=== PATIENT | male | born 1960 | race African-American/Black ===

== ENCOUNTER 2019-05-28 23:03 | Inpatient (IN) | payer MEDICAID ==
[~2019-05-28] VITALS: Ht 167.6 cm; Wt 99.8 kg
[2019-05-28 23:40] VITALS: BP 126/86
--- NOTE | 2019-05-28 23:50 | NUR ---
ED Nurse Note: PT walked in c/o right upper quad abd pain x 1 wk, reports nausea and diarrhea but denies vomiting. noted pt distended abd, nontender, active BS noted. pt ambulatory w/steady gait. pt AA&ox4, gcs=15, skin warm and dry resp even and unlabored on RA, LS= clear, vss, will cont monitor.
[2019-05-29] MEDS ORDERED: Morphine Sulfate 4mg/ml Inj (IV USE ONLY) IVP ONE
[2019-05-29 00:33] LABS: BASOPHILS % (AUTO) 1.5 % (0.0-2.0); EOSINOPHILS % (AUTO) 0.7 % (0.0-3.0); HEMOGLOBIN 12.6 G/DL (14.2-18.0); MEAN CORPUSCULAR VOLUME 92 FL (80-99); NEUTROPHILS % (AUTO) 36.7 % (45.0-75.0); PLATELET COUNT 250 K/UL (150-450); RED BLOOD COUNT 4.23 M/UL (4.70-6.10); RED CELL DISTRIBUTION WIDTH 13.1 % (11.6-14.8); WHITE BLOOD COUNT 5.3 K/UL (4.8-10.8)
[2019-05-29 00:40] VITALS: BP 138/105
[2019-05-29 00:41] LABS: APPEARANCE,URINE CLEAR; BILIRUBIN, URINE NEGATIVE (NEGATIVE); GLUCOSE, URINE (UA) NEGATIVE (NEGATIVE); KETONES,URINE 1+ (NEGATIVE); LEUKOCYTE ESTERASE ,URINE 2+ (NEGATIVE); NITRITE,URINE NEGATIVE (NEGATIVE); PH,URINE 5 (4.5-8.0); PROTEIN,URINE 2+ (NEGATIVE); UROBILINOGEN,URINE 1 MG/DL (0.0-1.0)
[2019-05-29 00:43] LABS: COLOR,URINE YELLOW
[2019-05-29 00:45] LABS: ANION GAP 7 mmol/L (5-15); BLOOD UREA NITROGEN 18 mg/dL (7-18); CALCIUM 9.9 MG/DL (8.5-10.1); CARBON DIOXIDE 27 MMOL/L (21-32); CHLORIDE 104 MMOL/L (98-107); CREATININE 1.5 MG/DL (0.55-1.30); SODIUM 138 MMOL/L (136-145)
[2019-05-29 00:57] LABS: ALANINE AMINOTRANSFERASE 46 U/L (12-78); ALBUMIN 3.3 G/DL (3.4-5.0); ALBUMIN/GLOBULIN RATIO 1.1 (1.0-2.7); ALKALINE PHOSPHATASE 63 U/L (46-116); ASPARTATE AMINO TRANSFERASE 33 U/L (15-37); BILIRUBIN,TOTAL 0.3 MG/DL (0.2-1.0); CREATINE KINASE 143 U/L (26-308)
--- NOTE | 2019-05-29 01:00 | NUR ---
ED Nurse Note: pt resting at this time pt reports pain is better with medication, vss, NSR on ekg monitor, will cont monitor. pt has urinal at the bedside. safety precautions in place, pt advised to notify staff if needed assist.
--- NOTE | 2019-05-29 01:00 | Emergency Room Report ---
History of Present Illness General Chief Complaint: Abdominal Pain Source: Patient Present Illness HPI Patient was discharged from [facility] on . He is complaining of right upper quadrant abdominal pain. The pain is persisting. They told him he had irritable bowel syndrome. They start him on antibiotics. The patient has a history of congestive heart failure. He is never had as much edema as he does in his legs at this time. He had abdominal distention that he states is somewhat better at this time. The did not give him any pain medication for home. The pain is significant in his abdomen his right upper quadrant. It is not radiating. Patient denies any chest pain. He also denies any dyspnea at this time. He does have some orthopnea. He could not sleep last night because of the pain in his abdomen. When he woke up this morning he was 9/10 pressure and aching. No fevers, chills, sore throat, palpitations, nausea, vomiting, diarrhea, dysuria, shortness of breath, joint pain, rashes, depression, anxiety, visual changes, headache. Allergies: Coded Allergies: LATEX (Verified Allergy, Unknown, 05/28/19) Patient History Past Medical History: see triage record Social History: Reports: drug use - denied but see tox screen; Denies: smoking Social History Narrative from home - came by [employer] Reviewed Nursing Documentation: PMH: Agreed; PSxH: Agreed Nursing Documentation-PMH Hx Hypertension: Yes Hx Asthma: Yes Hx Diabetes: Yes Review of Systems All Other Systems: negative except mentioned in HPI Physical Exam Vital Signs Date Time Temp Pulse Resp B/P (MAP) Pulse Ox O2 Delivery O2 Flow Rate FiO2 05/28/19 23:23 98.1 86 18 156/112 (127) 94 Room Air Sp02 EP Interpretation: reviewed, normal - slightly low as interpreted by me Head: normocephalic, atraumatic Eyes: bilateral eye normal inspection, bilateral eye PERRL Cardiovascular #1: regular rate, rhythm, edema - bilat 1-2+ brawny Gastrointestinal: normal bowel sounds, no rebound, guarding - RUQ, tenderness, overweight Genitourinary: no CVA tenderness Neurologic: oriented x3, grossly normal Psychiatric: mood/affect normal Skin: other - venous disease Medical Decision Making Diagnostic Impression: Primary Impression: Abdominal pain Qualified Codes: R10.11 - Right upper quadrant pain Additional Impressions: Cor pulmonale Substance abuse Acute exacerbation of congestive heart failure Qualified Codes: I50.813 - Acute on chronic right heart failure Edema Qualified Codes: R60.9 - Edema, unspecified ER Course Patient presents with edema and right upper quadrant pain history of congestive heart failure. Differential includes cor pulmonale with hepatic congestion, ascites, hepatitis, cholecystitis, acute myocardial infarction, DVT amongst others. Patient will be evaluated EKG, chest x-ray and labs. The patient will be treated with Lasix, Zofran and morphine. Percent will be obtained of his abdomen. EKG no injury. CXR reversal of flow. WBC normal. BNP normal. Tox + PCP and cocaine. Higher risk for cardiac event with + cocaine. Diuresing. Ultrasound - no ascites, + enlarged liver. No DVT. Patient improved. Patient adamantly denies drug use. States only meds were Dilaudid at [facility]. Admitted observation telemetry. Laboratory Tests Test 05/29/19 00:05 05/29/19 00:07 White Blood Count 5.3 K/UL (4.8-10.8) Red Blood Count 4.23 M/UL (4.70-6.10) L Hemoglobin 12.6 G/DL (14.2-18.0) L Hematocrit 39.0 % (42.0-52.0) L Mean Corpuscular Volume 92 FL (80-99) Mean Corpuscular Hemoglobin 29.9 PG (27.0-31.0) Mean Corpuscular Hemoglobin Concent 32.4 G/DL (32.0-36.0) Red Cell Distribution Width 13.1 % (11.6-14.8) Platelet Count 250 K/UL (150-450) Mean Platelet Volume 5.9 FL (6.5-10.1) L Neutrophils (%) (Auto) 36.7 % (45.0-75.0) L Lymphocytes (%) (Auto) 46.0 % (20.0-45.0) H Monocytes (%) (Auto) 15.0 % (1.0-10.0) H Eosinophils (%) (Auto) 0.7 % (0.0-3.0) Basophils (%) (Auto) 1.5 % (0.0-2.0) Prothrombin Time 10.5 SEC (9.30-11.50) Prothrombin Time INR 1.0 (0.9-1.1) PTT 27 SEC (23-33) Sodium Level 138 MMOL/L (136-145) Potassium Level 4.0 MMOL/L (3.5-5.1) Chloride Level 104 MMOL/L (98-107) Carbon Dioxide Level 27 MMOL/L (21-32) Anion Gap 7 mmol/L (5-15) Blood Urea Nitrogen 18 mg/dL (7-18) Creatinine 1.5 MG/DL (0.55-1.30) H Estimate Glomerular Filtration Rate 58.3 mL/min (>60) Glucose Level 89 MG/DL (74-106) Calcium Level 9.9 MG/DL (8.5-10.1) Total Bilirubin 0.3 MG/DL (0.2-1.0) Aspartate Amino Transferase (AST) 33 U/L (15-37) Alanine Aminotransferase (ALT) 46 U/L (12-78) Alkaline Phosphatase 63 U/L (46-116) Total Creatine Kinase 143 U/L (26-308) Troponin I 0.000 ng/mL (0.000-0.056) Pro-B-Type Natriuretic Peptide 47 pg/mL (0-125) Total Protein 6.4 G/DL (6.4-8.2) Albumin 3.3 G/DL (3.4-5.0) L Globulin 3.1 g/dL Albumin/Globulin Ratio 1.1 (1.0-2.7) Lipase 128 U/L (73-393) Thyroid Stimulating Hormone (TSH) 3.738 uiU/mL (0.358-3.740) Urine Color Yellow Urine Appearance Clear Urine pH 5 (4.5-8.0) Urine Specific [place] 1.020 (1.005-1.035) Urine Protein 2+ (NEGATIVE) H Urine Glucose (UA) Negative (NEGATIVE) Urine Ketones 1+ (NEGATIVE) H Urine Blood Negative (NEGATIVE) Urine Nitrite Negative (NEGATIVE) Urine Bilirubin Negative (NEGATIVE) Urine Urobilinogen 1 MG/DL (0.0-1.0) H Urine Leukocyte Esterase 2+ (NEGATIVE) H Urine RBC 0-2 /HPF (0 - 0) H Urine WBC 2-4 /HPF (0 - 0) Urine Squamous Epithelial Cells Occasional /LPF Urine Bacteria Few /HPF (NONE) Urine Opiates Screen Negative (NEGATIVE) Urine Barbiturates Screen Negative (NEGATIVE) Phencyclidine (PCP) Screen Positive (NEGATIVE) H Urine Amphetamines Screen Negative (NEGATIVE) Urine Benzodiazepines Screen Negative (NEGATIVE) Urine Cocaine Screen Positive (NEGATIVE) H Urine Marijuana (THC) Screen Negative (NEGATIVE) EKG Diagnostic Results Rate: normal Rhythm: NSR ST Segments: no acute changes Rhythm Strip Diag. Results EP Interpretation: yes Rhythm: NSR, no PVC's, no ectopy Chest X-Ray Diagnostic Results Chest X-Ray Diagnostic Results : Chest X-Ray Ordered: Yes # of Views/Limited/Complete: 1 View Indication: Chest Pain EP Interpretation: Yes Interpretation: no effusion, no pneumothorax, other - Reversal of flow Impression: Other Electronically Signed by: Electronically signed by Miguel Mojica MD Other X-Ray Diagnostic Results Other X-Ray Diagnostic Results : X-Ray ordered: Abdomen # of Views/Limited Vs Complete: 2 View Indication: Other EP Interpretation: Yes Interpretation: nonspecific bowel gas, no sbo, other - Positive gas no free air Impression: Other Electronically Signed by: Electronically signed by Miguel Mojica MD CT/MRI/US Diagnostic Results CT/MRI/US Diagnostic Results #1: Imaging Test Ordered: abd u/s Impression fatty liver, no ascites CT/MRI/US Diagnostic Results #2: Imaging Test Ordered: venous doppler Impression no dvt Last Vital Signs Date Time Temp Pulse Resp B/P (MAP) Pulse Ox O2 Delivery O2 Flow Rate FiO2 05/29/19 08:00 97.5 79 20 127/80 (96) 96 05/29/19 03:46 Room Air Status: improved Disposition: PLACE IN OBSERVATION Condition: Serious Referrals: NON PHYSICIAN (PCP) Miguel Mojica MD May 29, 2019 01:00
--- NOTE | 2019-05-29 01:25 | NUR ---
ED Nurse Note: noted o2sat 92% on RA, pt started on o2 via nc 2L/min, pt denies any sob at this time, resp even and unlabored on RA, will cont monitor.
--- NOTE | 2019-05-29 02:20 | NUR ---
ED Nurse Note: REPORT GIVEN TO RN WILLA FROM SDU. ULTRASOUND AT THE BEDSIDE.
--- NOTE | 2019-05-29 02:27 | NUR ---
ED Nurse Note: PT TRANSFERRED TO SDU W ALL BELONGINGS SENT W/ PT, CARE ENDORSED TO NIMO CROUCH, SWABS DONE PER PROTOCOL, IV INTACT AND PATENT. MEDICATIONS ENDORSED TO NIMO CROUCH.
[2019-05-29] MEDS ORDERED: Albuterol/Ipratropium 3ml neb HHN PRN (03:15)
--- NOTE | 2019-05-29 03:30 | NUR ---
NURSE NOTES: Received patient from ED nurse Tiana SUERO. Patient is awake and oriented x4, heart monitor on. Patient on room air, tolerating well, no signs of respiratory distress. IV site is right forearm 20g, patent and asymptomatic. Patient's belongings signed by patient. Bed is locked, side rails up x2, call light within reach. Will continue to monitor.
--- NOTE | 2019-05-29 04:20 | Diagnostic Imaging Report ---
Indication: Abdominal pain for one day, distention, hepatomegaly Technique: Pierce-scale and duplex images of the upper abdomen were obtained Comparison: none Findings: Gallbladder is unremarkable, without stones, wall thickening, nor pericholecystic fluid. Sonographic Crews's sign is negative. Common bile duct measures 6 mm in diameter. No intrahepatic biliary ductal dilatation. Liver demonstrates diffusely increased echogenicity, consistent with diffuse hepatocellular disease, most likely fatty change. No focal abnormality Portal vein and hepatic veins are patent. Pancreas is unremarkable. Spleen is unremarkable. Left kidney measures 12.4 cm in length. Right kidney measures 12.4 cm length. Both kidneys demonstrate normal echogenicity. There is no hydronephrosis. No focal abnormality . Non-aneurysmal abdominal aorta . 6 no free intraperitoneal fluid is demonstrated Impression: Negative for gallstones or dilated bile ducts Liver demonstrates diffusely increased echogenicity, consistent with diffuse hepatocellular disease, most likely fatty change.
--- NOTE | 2019-05-29 04:39 | Diagnostic Imaging Report ---
Indication: History bilateral leg edema and abdominal pain Technique: Grayscale and duplex images of the bilateral lower extremity veins Comparison: none Findings: Bilaterally, grayscale and duplex images demonstrate no evidence of intraluminal thrombus. Normal phasic Doppler waveforms, demonstrating normal augmentation response and no evidence of valvular insufficiency. Impression: Negative for evidence of lower extremity deep venous thrombosis bilaterally This agrees with the preliminary interpretation provided overnight by [facility] teleradiology service.
[2019-05-29] MEDS ORDERED: INTELENCE200 MG ORAL (04:42)
[2019-05-29] MEDS ORDERED: AZITHROMYCIN500 MG ORAL (04:47)
[2019-05-29] MEDS ORDERED: BACTRIM-DS1 EA ORAL (04:47)
[2019-05-29] MEDS ORDERED: SPIRONOLACTONE100 MG ORAL (04:49)
[2019-05-29] MEDS ORDERED: FLOMAX0.4 MG ORAL (04:49)
[2019-05-29] MEDS ORDERED: CHROMIUM PICO400 MCG PO (04:51)
[2019-05-29] MEDS ORDERED: FAMOTIDINE20 MG ORAL (04:51)
[2019-05-29] MEDS ORDERED: LIPITOR80 MG ORAL (04:52)
[2019-05-29] MEDS ORDERED: CIPROFLOXACIN750 MG ORAL (04:52)
[2019-05-29] MEDS ORDERED: PREZISTA800 MG ORAL (04:53)
[2019-05-29] MEDS ORDERED: METRONIDAZOLE500 MG ORAL (04:53)
[2019-05-29] MEDS ORDERED: TIVICAY50 MG ORAL ×3 (04:55→05:07)
[2019-05-29] MEDS ORDERED: HUMULIN R100 UNIT/1 SUBQ (05:07)
[2019-05-29] MEDS ORDERED: NORVIR100 MG ORAL (05:08)
--- NOTE | 2019-05-29 07:12 | NUR ---
HAND-OFF: Report given to Sophia SUERO. Patient in stable condition.
--- NOTE | 2019-05-29 07:13 | NUR ---
NURSE NOTES: Received report from NIMO Reynolds. Observed patient in bed, aaox4. On room air, no apparent respiratory distress noted at this time. equipment monitor phototypesetting shows sinus rhythm. IV on right FA 20g intact and patent. Denies pain/discomfort at this time. Safety precautions in place. Bed locked, alarmed, and in lowest position, side rails up x2, and call light left within reach. Instructed to call for assistance, verbalized understanding. Will continue to monitor.
[2019-05-29 08:00] VITALS: BP 127/80
[2019-05-29] MEDS: Aspirin Baby 81mg ORAL SCH (08:30)
[2019-05-29] MEDS: Heparin 5000 units/ml inj SUBQ SCH ×2 (08:33→21:35)
--- NOTE | 2019-05-29 08:47 | History and Physical ---
History of Present Illness General Date patient seen: May 29, 2019 Reason for Hospitalization: Abdominal Pain Present Illness HPI Patient was discharged from [facility] on . He is complaining of right upper quadrant abdominal pain. The pain is persisting. They told him he had irritable bowel syndrome. They start him on antibiotics. The patient has a history of congestive heart failure. He is never had as much edema as he does in his legs at this time. He had abdominal distention that he states is somewhat better at this time. The did not give him any pain medication for home. The pain is significant in his abdomen his right upper quadrant. It is not radiating. Patient denies any chest pain . He also denies any dyspnea at this time. He does have some orthopnea. He could not sleep last night because of the pain in his abdomen. When he woke up this morning he was 9/10 pressure and aching. Patient seen this am and reports the abd pain has resolved. US was negative. Patient states he was on fagyl and cipro for abd pain at the time he was at OSH and diagnosed with an :infection". He states he came in for right flank pain that started several days ago, described as a burning pain. He denies fevers or chills. He admits to a history of shingles at which time the pain was similar. Although his UDS is positive, he denies drug use since his diagnosis of MO in october. Allergies: Coded Allergies: LATEX (Verified Allergy, Unknown, 05/28/19) Medication History Scheduled Atorvastatin (Lipitor), 40 MG ORAL DAILY, (Reported) Azithromycin (Azithromycin), 600 MG ORAL Weekly-Julienne, (Reported) Ciprofloxacin Hcl (Ciprofloxacin Hcl*), 500 MG ORAL DAILY, (Reported) Darunavir Ethanolate (Prezista), 600 MG ORAL BID, (Reported) Dolutegravir Sodium (Tivicay), 50 MG ORAL DAILY, (Reported) Dolutegravir Sodium (Tivicay), 50 MG ORAL DAILY, (Reported) Dolutegravir Sodium (Tivicay), 50 MG ORAL BID, (Reported) Famotidine (Famotidine), 20 MG ORAL BID, (Reported) Metronidazole* (Flagyl*), 500 MG ORAL EVERY 8 HOURS, (Reported) Ritonavir* (Norvir*), 100 MG ORAL TWICE A DAY, (Reported) Spironolactone* (Spironolactone*), 25 MG ORAL DAILY, (Reported) Tamsulosin HCl (Flomax), 0.4 MG ORAL DAILY, (Reported) Trimethoprim/Sulfamethoxazole (Bactrim Ds Tablet), 1 TAB ORAL TWICE A DAY, ( Reported) Miscellaneous Medications Chromium Picolinate (Chromium Picolinate), 800 MCG PO, (Reported) Etravirine (Intelence), 200 MG ORAL, (Reported) Insulin Regular, Human (Humulin R), 0 SUBQ, (Reported) Patient History Healthcare decision maker Resuscitation status Full Code Advanced Directive on File Social History Social History: (1) Substance abuse Review of Systems All Other Systems: negative except mentioned in HPI Physical Exam Last 24 Hour Vital Signs Date Time Temp Pulse Resp B/P (MAP) Pulse Ox O2 Delivery O2 Flow Rate FiO2 05/29/19 08:00 97.5 79 20 127/80 (96) 96 05/29/19 05:29 98.9 05/29/19 04:03 76 05/29/19 04:03 76 05/29/19 03:46 Room Air 05/29/19 03:27 98.9 82 18 138/86 98 Room Air 05/29/19 00:42 98.9 05/29/19 00:40 98.2 78 18 138/105 94 Room Air 05/28/19 23:40 98.1 74 18 126/86 96 Room Air 05/28/19 23:40 86 18 Room Air 05/28/19 23:23 98.1 86 18 156/112 (127) 94 Room Air Intake and Output 05/28/19 05/29/19 19:00 07:00 Intake Total 240 ml Balance 240 ml Intake Oral 240 ml # Voids 1 Laboratory Tests Test 05/29/19 00:05 05/29/19 00:07 White Blood Count 5.3 K/UL (4.8-10.8) Red Blood Count 4.23 M/UL (4.70-6.10) L Hemoglobin 12.6 G/DL (14.2-18.0) L Hematocrit 39.0 % (42.0-52.0) L Mean Corpuscular Volume 92 FL (80-99) Mean Corpuscular Hemoglobin 29.9 PG (27.0-31.0) Mean Corpuscular Hemoglobin Concent 32.4 G/DL (32.0-36.0) Red Cell Distribution Width 13.1 % (11.6-14.8) Platelet Count 250 K/UL (150-450) Mean Platelet Volume 5.9 FL (6.5-10.1) L Neutrophils (%) (Auto) 36.7 % (45.0-75.0) L Lymphocytes (%) (Auto) 46.0 % (20.0-45.0) H Monocytes (%) (Auto) 15.0 % (1.0-10.0) H Eosinophils (%) (Auto) 0.7 % (0.0-3.0) Basophils (%) (Auto) 1.5 % (0.0-2.0) Prothrombin Time 10.5 SEC (9.30-11.50) Prothromb Time International Ratio 1.0 (0.9-1.1) Activated Partial Thromboplast Time 27 SEC (23-33) Sodium Level 138 MMOL/L (136-145) Potassium Level 4.0 MMOL/L (3.5-5.1) Chloride Level 104 MMOL/L (98-107) Carbon Dioxide Level 27 MMOL/L (21-32) Anion Gap 7 mmol/L (5-15) Blood Urea Nitrogen 18 mg/dL (7-18) Creatinine 1.5 MG/DL (0.55-1.30) H Estimat Glomerular Filtration Rate 58.3 mL/min (>60) Glucose Level 89 MG/DL (74-106) Calcium Level 9.9 MG/DL (8.5-10.1) Total Bilirubin 0.3 MG/DL (0.2-1.0) Aspartate Amino Transf (AST/SGOT) 33 U/L (15-37) Alanine Aminotransferase (ALT/SGPT) 46 U/L (12-78) Alkaline Phosphatase 63 U/L (46-116) Total Creatine Kinase 143 U/L (26-308) Troponin I 0.000 ng/mL (0.000-0.056) Pro-B-Type Natriuretic Peptide 47 pg/mL (0-125) Total Protein 6.4 G/DL (6.4-8.2) Albumin 3.3 G/DL (3.4-5.0) L Globulin 3.1 g/dL Albumin/Globulin Ratio 1.1 (1.0-2.7) Lipase 128 U/L (73-393) Thyroid Stimulating Hormone (TSH) 3.738 uiU/mL (0.358-3.740) Urine Color Yellow Urine Appearance Clear Urine pH 5 (4.5-8.0) Urine Specific [place] 1.020 (1.005-1.035) Urine Protein 2+ (NEGATIVE) H Urine Glucose (UA) Negative (NEGATIVE) Urine Ketones 1+ (NEGATIVE) H Urine Blood Negative (NEGATIVE) Urine Nitrite Negative (NEGATIVE) Urine Bilirubin Negative (NEGATIVE) Urine Urobilinogen 1 MG/DL (0.0-1.0) H Urine Leukocyte Esterase 2+ (NEGATIVE) H Urine RBC 0-2 /HPF (0 - 0) H Urine WBC 2-4 /HPF (0 - 0) Urine Squamous Epithelial Cells Occasional /LPF Urine Bacteria Few /HPF (NONE) Urine Opiates Screen Negative (NEGATIVE) Urine Barbiturates Screen Negative (NEGATIVE) Phencyclidine (PCP) Screen Positive (NEGATIVE) H Urine Amphetamines Screen Negative (NEGATIVE) Urine Benzodiazepines Screen Negative (NEGATIVE) Urine Cocaine Screen Positive (NEGATIVE) H Urine Marijuana (THC) Screen Negative (NEGATIVE) Height (Feet): 5 Height (Inches): 6.00 Weight (Pounds): 221 Medications Current Medications Medications (Trade) Dose Ordered Sig/Cara Route PRN Reason Start Time Stop Time Status Last Admin Dose Admin Acetaminophen (Tylenol) 650 mg Q4H PRN ORAL Mild Pain (Pain Scale 1-3) 05/29/19 03:15 06/28/19 03:14 05/29/19 08:30 Albuterol/ Ipratropium (Albuterol/ Ipratropium) 3 ml Q4H PRN HHN Shortness of Breath 05/29/19 03:15 06/03/19 03:14 Aspirin (ASA) 81 mg DAILY ORAL 05/29/19 09:00 06/28/19 08:59 05/29/19 08:30 Dextrose (Dextrose 50%) 25 ml Q30M PRN IV Hypoglycemia 05/29/19 03:15 06/28/19 03:14 Dextrose (Dextrose 50%) 50 ml Q30M PRN IV Hypoglycemia 05/29/19 03:15 06/28/19 03:14 Heparin Sodium (Porcine) (Heparin 5000 units/ml) 5,000 units EVERY 12 HOURS SUBQ 05/29/19 09:00 06/28/19 08:59 05/29/19 08:33 Objective Narrative GEN: WWN, NAD, Alert CV: RRR, no M, R, G, no jvd RESP: CTAB, no w/r/c ABD: normal bowel sounds, soft, mild diffuse tenderness EXT: normal muscle tone, no tenderness, 1+ pitting edema bl NEURO: grossly normal, no tremors, a x o x 3 skin: right flank with vesicular lesions in dermatomal pattern Assessment/Plan Diagnosis Harbeson I: 58 yo male with PMH of [place] diagnose in 10/2018 (reports no stents), HIV, and CHF, presents complaining of abd pain that has resolved and right sided flank pain # Right flank pain 2/2 shingles - valacyclovir 1gm tid x 7 days (05/29-) # HIV - cont home meds - ID consult # Add pain - resolved # Recent dx of xolitis at osh - per patient he was started on cipro and flagyl on - continue abx # LISA vs CKD - hold ivf and lasix - trend bmp - nephro consult: Dr. Thornton # Chronic CHF, - tte - cardiac meds - hold spironolactone # Substance abuse - cocaine and pcp positive - monitor - hold ivf - monitor for withdrawal - sw consult # FULL CODE - d/w patient 18 minutes Time of note may not reflex time of encounter Paige Christensen DO May 29, 2019 08:47
--- NOTE | 2019-05-29 08:53 | NUR ---
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 IS: Zofran 4mg IV Morphine 4mg IVP Lasix 40mg IV Admitted to Telemetry Observation status DCP: Pending Hospital Stay
--- NOTE | 2019-05-29 09:25 | NUR ---
NURSE NOTES: Dr Christensen informed and made aware of patient's c/o rash on right mid-back; at bedside to examine patient. New orders noted and carried out.
--- NOTE | 2019-05-29 09:30 | NUR ---
NURSE NOTES: Dr Christensen at bedside, ordered to continue pt's home medications.
[2019-05-29] MEDS ORDERED: Azithromycin 600mg Tab ORAL SCH (10:00)
--- NOTE | 2019-05-29 11:15 | Diagnostic Imaging Report ---
Indication: Chest pain for one day Technique: One view of the chest Comparison: none Findings: There is some atelectasis at the right lung base. Lungs and pleural spaces are otherwise clear. Heart size is normal. The aorta is elongated tortuous and calcified. Impression: No acute process
--- NOTE | 2019-05-29 11:16 | Diagnostic Imaging Report ---
Indication: Abdominal pain for one day Technique: Supine view of the abdomen Comparison: none Findings: Exam is very limited due to patient body habitus, bordering on nondiagnostic. Bowel gas pattern is grossly unremarkable. Impression: Limited, borderline nondiagnostic exam. No gross acute abnormality
[2019-05-29] MEDS: NovoLOG Insulin Flexpen SUBQ SCH ×3 (11:24→21:00)
[2019-05-29] MEDS ORDERED: Insulin Human Regular 100units/ml 3ml SUBQ SCH (11:30)
--- NOTE | 2019-05-29 11:30 | NUR ---
NURSE NOTES: 2D echo at bedside
[2019-05-29 12:00] VITALS: BP 130/94
[2019-05-29] MEDS: traMADol 50mg tab ORAL PRN ×2 (14:11→23:18)
[2019-05-29] MEDS: valACYclovir HCL 500mg tab ORAL SCH ×2 (14:11→21:35)
[2019-05-29] MEDS: metroNIDAZOLE 500mg tab ORAL SCH ×2 (14:11→21:35)
--- NOTE | 2019-05-29 15:55 | Infectious Diseases Prog Note ---
Assessment/Plan Assessment/Plan Full consult dictated: A) 1) hiv, aids 2) ? colitis, diarrhea per patient, ? infectious diarrhea, ? c.diff. 3) right flank/back/trunk HZV/shingles - lesions look dry 4) pmh noted 5) allergies - latex P) 1) cipro, flagyl, anti-retrovirals, valtrex 2) check stool studies, monitor labs, check cd4/viral load 3) thank you Subjective Allergies: Coded Allergies: LATEX (Verified Allergy, Unknown, 05/28/19) Objective Vital Signs Last 24 Hour Vital Signs Date Time Temp Pulse Resp B/P (MAP) Pulse Ox O2 Delivery O2 Flow Rate FiO2 05/29/19 12:00 97.0 80 18 130/94 (106) 95 05/29/19 11:30 76 05/29/19 09:00 Room Air 05/29/19 08:00 97.5 79 20 127/80 (96) 96 05/29/19 05:29 98.9 05/29/19 04:03 76 05/29/19 04:03 76 05/29/19 03:46 Room Air 05/29/19 03:27 98.9 82 18 138/86 98 Room Air 05/29/19 00:42 98.9 05/29/19 00:40 98.2 78 18 138/105 94 Room Air 05/28/19 23:40 98.1 74 18 126/86 96 Room Air 05/28/19 23:40 86 18 Room Air 05/28/19 23:23 98.1 86 18 156/112 (127) 94 Room Air Height (Feet): 5 Height (Inches): 6.00 Weight (Pounds): 221 Laboratory Tests Test 05/29/19 00:05 05/29/19 00:07 White Blood Count 5.3 K/UL (4.8-10.8) Red Blood Count 4.23 M/UL (4.70-6.10) L Hemoglobin 12.6 G/DL (14.2-18.0) L Hematocrit 39.0 % (42.0-52.0) L Mean Corpuscular Volume 92 FL (80-99) Mean Corpuscular Hemoglobin 29.9 PG (27.0-31.0) Mean Corpuscular Hemoglobin Concent 32.4 G/DL (32.0-36.0) Red Cell Distribution Width 13.1 % (11.6-14.8) Platelet Count 250 K/UL (150-450) Mean Platelet Volume 5.9 FL (6.5-10.1) L Neutrophils (%) (Auto) 36.7 % (45.0-75.0) L Lymphocytes (%) (Auto) 46.0 % (20.0-45.0) H Monocytes (%) (Auto) 15.0 % (1.0-10.0) H Eosinophils (%) (Auto) 0.7 % (0.0-3.0) Basophils (%) (Auto) 1.5 % (0.0-2.0) Prothrombin Time 10.5 SEC (9.30-11.50) Prothromb Time International Ratio 1.0 (0.9-1.1) Activated Partial Thromboplast Time 27 SEC (23-33) Sodium Level 138 MMOL/L (136-145) Potassium Level 4.0 MMOL/L (3.5-5.1) Chloride Level 104 MMOL/L (98-107) Carbon Dioxide Level 27 MMOL/L (21-32) Anion Gap 7 mmol/L (5-15) Blood Urea Nitrogen 18 mg/dL (7-18) Creatinine 1.5 MG/DL (0.55-1.30) H Estimat Glomerular Filtration Rate 58.3 mL/min (>60) Glucose Level 89 MG/DL (74-106) Calcium Level 9.9 MG/DL (8.5-10.1) Total Bilirubin 0.3 MG/DL (0.2-1.0) Aspartate Amino Transf (AST/SGOT) 33 U/L (15-37) Alanine Aminotransferase (ALT/SGPT) 46 U/L (12-78) Alkaline Phosphatase 63 U/L (46-116) Total Creatine Kinase 143 U/L (26-308) Troponin I 0.000 ng/mL (0.000-0.056) Pro-B-Type Natriuretic Peptide 47 pg/mL (0-125) Total Protein 6.4 G/DL (6.4-8.2) Albumin 3.3 G/DL (3.4-5.0) L Globulin 3.1 g/dL Albumin/Globulin Ratio 1.1 (1.0-2.7) Lipase 128 U/L (73-393) Thyroid Stimulating Hormone (TSH) 3.738 uiU/mL (0.358-3.740) Urine Color Yellow Urine Appearance Clear Urine pH 5 (4.5-8.0) Urine Specific [place] 1.020 (1.005-1.035) Urine Protein 2+ (NEGATIVE) H Urine Glucose (UA) Negative (NEGATIVE) Urine Ketones 1+ (NEGATIVE) H Urine Blood Negative (NEGATIVE) Urine Nitrite Negative (NEGATIVE) Urine Bilirubin Negative (NEGATIVE) Urine Urobilinogen 1 MG/DL (0.0-1.0) H Urine Leukocyte Esterase 2+ (NEGATIVE) H Urine RBC 0-2 /HPF (0 - 0) H Urine WBC 2-4 /HPF (0 - 0) Urine Squamous Epithelial Cells Occasional /LPF Urine Bacteria Few /HPF (NONE) Urine Opiates Screen Negative (NEGATIVE) Urine Barbiturates Screen Negative (NEGATIVE) Phencyclidine (PCP) Screen Positive (NEGATIVE) H Urine Amphetamines Screen Negative (NEGATIVE) Urine Benzodiazepines Screen Negative (NEGATIVE) Urine Cocaine Screen Positive (NEGATIVE) H Urine Marijuana (THC) Screen Negative (NEGATIVE) Current Medications Medications (Trade) Dose Ordered Sig/Cara Route PRN Reason Start Time Stop Time Status Last Admin Dose Admin Acetaminophen (Tylenol) 650 mg Q4H PRN ORAL Mild Pain (Pain Scale 1-3) 05/29/19 03:15 06/28/19 03:14 05/29/19 08:30 Albuterol/ Ipratropium (Albuterol/ Ipratropium) 3 ml Q4H PRN HHN Shortness of Breath 05/29/19 03:15 06/03/19 03:14 Aspirin (ASA) 81 mg DAILY ORAL 05/29/19 09:00 06/28/19 08:59 05/29/19 08:30 Azithromycin (Zithromax) 600 mg ONCE A WEEK ORAL 05/29/19 10:00 06/05/19 09:59 05/29/19 12:17 Ciprofloxacin (Cipro 500mg tab) 500 mg EVERY 12 HOURS ORAL 05/29/19 21:00 06/01/19 20:59 Dextrose (Dextrose 50%) 25 ml Q30M PRN IV Hypoglycemia 05/29/19 10:15 06/28/19 10:14 Dextrose (Dextrose 50%) 50 ml Q30M PRN IV Hypoglycemia 05/29/19 10:15 06/28/19 10:14 Famotidine (Pepcid) 20 mg BID ORAL 05/29/19 18:00 06/28/19 17:59 Heparin Sodium (Porcine) (Heparin 5000 units/ml) 5,000 units EVERY 12 HOURS SUBQ 05/29/19 09:00 06/28/19 08:59 05/29/19 08:33 Insulin Aspart (NovoLOG) BEFORE MEALS AND HS SUBQ 05/29/19 11:30 06/28/19 11:29 Metronidazole (Flagyl) 500 mg EVERY 8 HOURS ORAL 05/29/19 14:00 06/05/19 13:59 05/29/19 14:11 Patient Own Medication (Patient's Own Med) 1 ea BID ORAL 05/29/19 18:00 06/28/19 17:59 Patient Own Medication (Patient's Own Med) 1 ea BID ORAL 05/29/19 18:00 06/28/19 17:59 Patient Own Medication (Patient's Own Med) 1 ea BID ORAL 05/29/19 18:00 06/28/19 17:59 Patient Own Medication (Patient's Own Med) 1 ea TWICE A DAY ORAL 05/29/19 18:00 06/28/19 17:59 Tamsulosin HCl (Flomax) 0.4 mg DAILY ORAL 05/30/19 09:00 06/29/19 08:59 Tramadol HCl (Ultram) 50 mg Q6H PRN ORAL Moderate Pain (Pain Scale 4-6) 05/29/19 13:45 06/05/19 13:44 05/29/19 14:11 Trimethoprim/ Sulfamethoxazole (Bactrim-DS) 1 tab Q12HR ORAL 05/29/19 21:00 06/05/19 20:59 Valacyclovir HCl (Valtrex) 1,000 mg Q8HR ORAL 05/29/19 14:00 06/05/19 06:01 05/29/19 14:11 Ninfa Sethi MD May 29, 2019 15:55
[2019-05-29 16:00] VITALS: BP 118/73
--- NOTE | 2019-05-29 16:03 | Consultation ---
History of Present Illness General Chief Complaint: Abdominal Pain Present Illness HPI Patient was discharged from [facility] on . He is complaining of right upper quadrant abdominal pain. The pain is persisting. They told him he had irritable bowel syndrome. They start him on antibiotics. The patient has a history of congestive heart failure. He is never had as much edema as he does in his legs at this time. He had abdominal distention that he states is somewhat better at this time. The did not give him any pain medication for home. The pain is significant in his abdomen his right upper quadrant. It is not radiating. Patient denies any chest pain e also denies any dyspnea at this time. He does have some orthopnea. He could not sleep last night because of the pain in his abdomen. When he woke up this morning he was 9/10 pressure and aching. today he notes that his pain has resolved. His Cr noted to be 1.5 on presentation. Allergies: Coded Allergies: LATEX (Verified Allergy, Unknown, 05/28/19) Medication History Scheduled Atorvastatin (Lipitor), 40 MG ORAL DAILY, (Reported) Azithromycin (Azithromycin), 600 MG ORAL Weekly-Sun, (Reported) Ciprofloxacin Hcl (Ciprofloxacin Hcl*), 500 MG ORAL DAILY, (Reported) Darunavir Ethanolate (Prezista), 600 MG ORAL BID, (Reported) Dolutegravir Sodium (Tivicay), 50 MG ORAL DAILY, (Reported) Dolutegravir Sodium (Tivicay), 50 MG ORAL DAILY, (Reported) Dolutegravir Sodium (Tivicay), 50 MG ORAL BID, (Reported) Famotidine (Famotidine), 20 MG ORAL BID, (Reported) Metronidazole* (Flagyl*), 500 MG ORAL EVERY 8 HOURS, (Reported) Ritonavir* (Norvir*), 100 MG ORAL TWICE A DAY, (Reported) Spironolactone* (Spironolactone*), 25 MG ORAL DAILY, (Reported) Tamsulosin HCl (Flomax), 0.4 MG ORAL DAILY, (Reported) Trimethoprim/Sulfamethoxazole (Bactrim Ds Tablet), 1 TAB ORAL TWICE A DAY, ( Reported) Miscellaneous Medications Chromium Picolinate (Chromium Picolinate), 800 MCG PO, (Reported) Etravirine (Intelence), 200 MG ORAL, (Reported) Insulin Regular, Human (Humulin R), 0 SUBQ, (Reported) Patient History Healthcare decision maker Resuscitation status Full Code Advanced Directive on File Review of Systems Constitutional: Reports: chills, fever Eye: Denies: no symptoms, see HPI, eye pain, blurred vision, tearing, double vision, nose pain, nose congestion, acuity changes, discharge, other ENT: Denies: no symptoms, see HPI, ear pain, ear discharge, nose pain, nose congestion, throat pain, throat swelling, mouth pain, hearing loss, nasal discharge, other Respiratory: Denies: no symptoms, see HPI, cough, orthopnea, shortness of breath, stridor, wheezing, FAYE, sputum, other Cardiovascular: Denies: no symptoms, see HPI, chest pain, edema, palpitations, syncope, PND, other Gastrointestinal: Denies: no symptoms, see HPI, abdominal pain, constipation, diarrhea, nausea, vomiting, melena, hematemesis, other Genitourinary: Denies: no symptoms, see HPI, discharge, dysuria, frequency, hematuria, pain, retention, incontinence, urgency, vag bleed/dc, other Musculoskeletal: Denies: no symptoms, see HPI, back pain, gout, joint pain, joint swelling, muscle pain, muscle stiffness, other Skin: Denies: no symptoms, see HPI, rash, change in color, change in hair/nails , dryness, lesions, other Psychiatric: Denies: no symptoms, see HPI, prior hx, anxiety, depressed feelings, emotional problems, SI, HI, hallucinations, other Endocrine: Denies: no symptoms, see HPI, excessive sweating, flushing, intolerance to temperature, increased thirst, increased urine, unexplained weight loss, other Physical Exam General Appearance: WD/WN, no apparent distress HEENT: normocephalic, atraumatic, anicteric Neck: non-tender, normal alignment Respiratory/Chest: lungs clear, normal breath sounds Abdomen: non tender, soft Extremities: normal range of motion Neurologic: oriented x 3, responsive Last 24 Hour Vital Signs Date Time Temp Pulse Resp B/P (MAP) Pulse Ox O2 Delivery O2 Flow Rate FiO2 05/29/19 12:00 97.0 80 18 130/94 (106) 95 05/29/19 11:30 76 05/29/19 09:00 Room Air 05/29/19 08:00 97.5 79 20 127/80 (96) 96 05/29/19 05:29 98.9 05/29/19 04:03 76 05/29/19 04:03 76 05/29/19 03:46 Room Air 05/29/19 03:27 98.9 82 18 138/86 98 Room Air 05/29/19 00:42 98.9 05/29/19 00:40 98.2 78 18 138/105 94 Room Air 05/28/19 23:40 98.1 74 18 126/86 96 Room Air 05/28/19 23:40 86 18 Room Air 05/28/19 23:23 98.1 86 18 156/112 (127) 94 Room Air Intake and Output 05/28/19 05/29/19 19:00 07:00 Intake Total 240 ml Balance 240 ml Intake Oral 240 ml # Voids 1 Laboratory Tests Test 05/29/19 00:05 05/29/19 00:07 White Blood Count 5.3 K/UL (4.8-10.8) Red Blood Count 4.23 M/UL (4.70-6.10) L Hemoglobin 12.6 G/DL (14.2-18.0) L Hematocrit 39.0 % (42.0-52.0) L Mean Corpuscular Volume 92 FL (80-99) Mean Corpuscular Hemoglobin 29.9 PG (27.0-31.0) Mean Corpuscular Hemoglobin Concent 32.4 G/DL (32.0-36.0) Red Cell Distribution Width 13.1 % (11.6-14.8) Platelet Count 250 K/UL (150-450) Mean Platelet Volume 5.9 FL (6.5-10.1) L Neutrophils (%) (Auto) 36.7 % (45.0-75.0) L Lymphocytes (%) (Auto) 46.0 % (20.0-45.0) H Monocytes (%) (Auto) 15.0 % (1.0-10.0) H Eosinophils (%) (Auto) 0.7 % (0.0-3.0) Basophils (%) (Auto) 1.5 % (0.0-2.0) Prothrombin Time 10.5 SEC (9.30-11.50) Prothromb Time International Ratio 1.0 (0.9-1.1) Activated Partial Thromboplast Time 27 SEC (23-33) Sodium Level 138 MMOL/L (136-145) Potassium Level 4.0 MMOL/L (3.5-5.1) Chloride Level 104 MMOL/L (98-107) Carbon Dioxide Level 27 MMOL/L (21-32) Anion Gap 7 mmol/L (5-15) Blood Urea Nitrogen 18 mg/dL (7-18) Creatinine 1.5 MG/DL (0.55-1.30) H Estimat Glomerular Filtration Rate 58.3 mL/min (>60) Glucose Level 89 MG/DL (74-106) Calcium Level 9.9 MG/DL (8.5-10.1) Total Bilirubin 0.3 MG/DL (0.2-1.0) Aspartate Amino Transf (AST/SGOT) 33 U/L (15-37) Alanine Aminotransferase (ALT/SGPT) 46 U/L (12-78) Alkaline Phosphatase 63 U/L (46-116) Total Creatine Kinase 143 U/L (26-308) Troponin I 0.000 ng/mL (0.000-0.056) Pro-B-Type Natriuretic Peptide 47 pg/mL (0-125) Total Protein 6.4 G/DL (6.4-8.2) Albumin 3.3 G/DL (3.4-5.0) L Globulin 3.1 g/dL Albumin/Globulin Ratio 1.1 (1.0-2.7) Lipase 128 U/L (73-393) Thyroid Stimulating Hormone (TSH) 3.738 uiU/mL (0.358-3.740) Urine Color Yellow Urine Appearance Clear Urine pH 5 (4.5-8.0) Urine Specific [place] 1.020 (1.005-1.035) Urine Protein 2+ (NEGATIVE) H Urine Glucose (UA) Negative (NEGATIVE) Urine Ketones 1+ (NEGATIVE) H Urine Blood Negative (NEGATIVE) Urine Nitrite Negative (NEGATIVE) Urine Bilirubin Negative (NEGATIVE) Urine Urobilinogen 1 MG/DL (0.0-1.0) H Urine Leukocyte Esterase 2+ (NEGATIVE) H Urine RBC 0-2 /HPF (0 - 0) H Urine WBC 2-4 /HPF (0 - 0) Urine Squamous Epithelial Cells Occasional /LPF Urine Bacteria Few /HPF (NONE) Urine Opiates Screen Negative (NEGATIVE) Urine Barbiturates Screen Negative (NEGATIVE) Phencyclidine (PCP) Screen Positive (NEGATIVE) H Urine Amphetamines Screen Negative (NEGATIVE) Urine Benzodiazepines Screen Negative (NEGATIVE) Urine Cocaine Screen Positive (NEGATIVE) H Urine Marijuana (THC) Screen Negative (NEGATIVE) Height (Feet): 5 Height (Inches): 6.00 Weight (Pounds): 221 Medications Current Medications Medications (Trade) Dose Ordered Sig/Cara Route PRN Reason Start Time Stop Time Status Last Admin Dose Admin Acetaminophen (Tylenol) 650 mg Q4H PRN ORAL Mild Pain (Pain Scale 1-3) 05/29/19 03:15 06/28/19 03:14 05/29/19 08:30 Albuterol/ Ipratropium (Albuterol/ Ipratropium) 3 ml Q4H PRN HHN Shortness of Breath 05/29/19 03:15 06/03/19 03:14 Aspirin (ASA) 81 mg DAILY ORAL 05/29/19 09:00 06/28/19 08:59 05/29/19 08:30 Azithromycin (Zithromax) 600 mg ONCE A WEEK ORAL 05/29/19 10:00 06/05/19 09:59 05/29/19 12:17 Ciprofloxacin (Cipro 500mg tab) 500 mg EVERY 12 HOURS ORAL 05/29/19 21:00 06/01/19 20:59 Dextrose (Dextrose 50%) 25 ml Q30M PRN IV Hypoglycemia 05/29/19 10:15 06/28/19 10:14 Dextrose (Dextrose 50%) 50 ml Q30M PRN IV Hypoglycemia 05/29/19 10:15 06/28/19 10:14 Famotidine (Pepcid) 20 mg BID ORAL 05/29/19 18:00 06/28/19 17:59 Heparin Sodium (Porcine) (Heparin 5000 units/ml) 5,000 units EVERY 12 HOURS SUBQ 05/29/19 09:00 06/28/19 08:59 05/29/19 08:33 Insulin Aspart (NovoLOG) BEFORE MEALS AND HS SUBQ 05/29/19 11:30 06/28/19 11:29 Metronidazole (Flagyl) 500 mg EVERY 8 HOURS ORAL 05/29/19 14:00 06/05/19 13:59 05/29/19 14:11 Patient Own Medication (Patient's Own Med) 1 ea BID ORAL 05/29/19 18:00 06/28/19 17:59 Patient Own Medication (Patient's Own Med) 1 ea BID ORAL 05/29/19 18:00 06/28/19 17:59 Patient Own Medication (Patient's Own Med) 1 ea BID ORAL 05/29/19 18:00 06/28/19 17:59 Patient Own Medication (Patient's Own Med) 1 ea TWICE A DAY ORAL 05/29/19 18:00 06/28/19 17:59 Tamsulosin HCl (Flomax) 0.4 mg DAILY ORAL 05/30/19 09:00 06/29/19 08:59 Tramadol HCl (Ultram) 50 mg Q6H PRN ORAL Moderate Pain (Pain Scale 4-6) 05/29/19 13:45 06/05/19 13:44 05/29/19 14:11 Trimethoprim/ Sulfamethoxazole (Bactrim-DS) 1 tab DAILY ORAL 05/30/19 09:00 06/06/19 08:59 Valacyclovir HCl (Valtrex) 1,000 mg Q8HR ORAL 05/29/19 14:00 06/05/19 06:01 05/29/19 14:11 Assessment/Plan Problem List: (1) CHF (congestive heart failure) ICD Codes: I50.9 - Heart failure, unspecified SNOMED: 35163533 (2) Substance abuse ICD Codes: F19.10 - Other psychoactive substance abuse, uncomplicated SNOMED: 85681655 (3) Edema ICD Codes: R60.9 - Edema, unspecified SNOMED: 023857726, 472254625 Qualifiers: (4) Abdominal pain ICD Codes: R10.9 - Unspecified abdominal pain SNOMED: 07218043, 999977871 Qualifiers: Qualified Codes: R10.11 - Right upper quadrant pain Diagnosis [place] I: #LISA- likely due to CRS- #flank pain due to shingles #HIV #CHF # Substance abuse - hold diuretics for now - hold aldactone - monitor off IVF for now - avoid nephrotoxins - trend BMP in am - f/u 2d echo - on valtrex - monitor for nephrotoxicity Jaylan Thornton M.D. May 29, 2019 16:03
[2019-05-29] MEDS ORDERED: Patient's Own Med - Norvir 100mg ORAL SCH (18:00)
[2019-05-29] MEDS ORDERED: Dolutegravir Sodium 50mg tab ORAL SCH (18:00)
[2019-05-29] MEDS ORDERED: Ritonavir 100mg tab ORAL SCH (18:00)
[2019-05-29] MEDS ORDERED: Patient's Own Med - Tivicay 50mg ORAL SCH (18:00)
--- NOTE | 2019-05-29 19:10 | NUR ---
HAND-OFF: Report given to NIMO Cuellar. Patient in stable condition.
--- NOTE | 2019-05-29 19:15 | NUR ---
NURSE NOTES: Received patient from NIMO Cortes. Will continue plan of care.
--- NOTE | 2019-05-29 19:37 | Cardiology Report ---
APPROVED REPORT EXAM: Two-dimensional and M-mode echocardiogram with Doppler and color Doppler. INDICATION Chest Pain M-Mode DIMENSIONS IVSd0.9 (0.7-1.1cm)Left Atrium (MM)3.4 (1.6-4.0cm) LVDd5.6 (3.5-5.6cm)Aortic Root3.2 (2.0-3.7cm) PWd1.3 (0.7-1.1cm)Aortic Cusp Exc.1.9 (1.5-2.0cm) LVDs4.1 (2.5-4.0cm) PWs1.8 cm Left ventricular chamber size at the upper normal limits. Hyperdynamic LV systolic function and wall motion. Left ventricular ejection fraction estimated to be 70-75%. Mild left ventricular hypertrophy by 2-D. Anterior Echo-free space, may be due to pericardial fat or effusion. All other cardiac chamber sizes are within normal limits. Focal aortic valve sclerosis with adequate cusp excursion. Thickened mitral valve leaflets with normal excursion. Mitral annulus and aortic root calcification. Pulmonic valve not well visualized. Normal tricuspid valve structure. IVC dilated at 2.3 cm and non-collapsing with respiration suggestive of increased RA pressure -15 mmHg. A color flow and spectral Doppler study was performed and revealed: Trace aortic insufficiency. Trace mitral regurgitation. Mitral diastolic velocities suggest mild left ventricular diastolic dysfunction (Grade I). Mild tricuspid regurgitation. Tricuspid systolic velocities suggests peak right ventricular systolic pressure of 50mmHg, consistent with moderate pulmonary hypertension. No pulmonic regurgitation present.
--- NOTE | 2019-05-29 19:52 | Cardiology Report ---
APPROVED REPORT EKG Measurement Heart [id number] [place] [id number] Normal sinus rhythm Normal ECG
[2019-05-29 20:00] VITALS: BP 142/89
[2019-05-29] MEDS ORDERED: Bactrim-DS 1 tab ORAL SCH (21:00)
[2019-05-29] MEDS: Ciprofloxacin 500mg tab ORAL SCH (21:35)
[2019-05-30] VITALS: BP 127/84
--- NOTE | 2019-05-30 01:15 | Consultation ---
DATE OF CONSULTATION: 05/29/2019 INFECTIOUS DISEASE CONSULTATION CONSULTING PHYSICIAN: Ninfa Sethi M.D. ATTENDING PHYSICIAN: Naz Arenas M.D. REFERRING PHYSICIAN: Paige Christensen M.D. REASON FOR CONSULTATION: Possible infectious diarrhea, HIV/AIDS, history of herpes zoster infection, and shingles. CHIEF COMPLAINT: The patient's chief complaint coming in to the hospital is CHF. HISTORY OF PRESENT ILLNESS: This is a very pleasant 58-year-old male with history of HIV and AIDS, who comes from an outside hospital where he was diagnosed with irritable bowel syndrome and abdominal pain. The patient presents to [facility] now with CHF and abdominal discomfort and diarrhea. Per the patient, he has diarrhea. The patient had a drug screen that was positive for phencyclidine and also cocaine. The patient had possible colitis and diarrhea. Question, if the patient has infectious diarrhea or C. difficile colitis. He was on antibiotics prior I believe. He also has history of HIV and AIDS. The patient also has what looks like recent right trunk, back, and flank herpes zoster virus infection or shingles. Infectious Disease consultation is requested. The patient is currently on Valtrex, Cipro, and Flagyl and his anti-retroviral regimen. REVIEW OF SYSTEMS: CONSTITUTIONAL: Currently, he has no fever or chills. HEAD AND NECK: No head pain or neck pain. CARDIAC: No chest pain. GASTROINTESTINAL: He has abdominal pain and diarrhea per the patient. GENITOURINARY: No dysuria or frequency. PULMONARY: No congestion or shortness of breath. He does have leg edema. SKIN: No rash. NEUROLOGIC: No seizures. PAST MEDICAL HISTORY: The patient's past medical history includes the following. He has a past history of HIV and AIDS and history of what looks like possible irritable bowel syndrome. Other past medical history includes CHF and edema. At this time, it looks like he has history of hyperlipidemia. He is on atorvastatin. He has history of chronic CHF, acute kidney injury, elevated creatinine, anemia, and history of substance abuse. MEDICATIONS: Upon reviewing the MAR, he is on the following medications. He is on acetaminophen, aspirin, and azithromycin weekly. He is on Bactrim daily. He is on Prezista and IV fluids. He is on famotidine. He is on furosemide, heparin, and insulin. He is on Flagyl, Cipro, and Zofran. He is on Norvir. I think he is on dolutegravir. He is on valacyclovir and Valtrex. He is on Intelence, ritonavir, Norvir, spironolactone, and tamsulosin. He is on Prezista or darunavir and dolutegravir or Tivicay. ALLERGIES: Include latex. No antibiotic allergies. SOCIAL HISTORY: Positive for what looks like positive drug screen. He has positive history of drug use and also no alcohol or smoking history per the patient. Drug screen is positive for cocaine and PCP. FAMILY HISTORY: Noncontributory. PHYSICAL EXAMINATION: VITAL SIGNS: Temperature is 97, pulse rate 73, respiratory rate 18, blood pressure is 118/73, and saturation 95%. GENERAL: Alert and responsive, in no distress. HEAD AND NECK: Oral exam, no thrush. Eye exam, no icterus. Neck is supple. No JVD. Normocephalic. HEART: Regular. No gallop or murmur. No friction rub. ABDOMEN: Soft. Positive bowel sounds. No rebound. Some tenderness. LUNGS: Clear bilaterally. No rhonchi or rales. SKIN: No rash. MUSCULOSKELETAL: No effusion. No septic arthritis. EXTREMITIES: Lower extremities, he has edema. No cellulitis. PERIPHERAL VASCULAR: No gangrene. : No CVA tenderness. No Hannah. NEUROLOGIC: Intact. Nonfocal. Alert and oriented. LABORATORY DATA: White count 5.3 and hemoglobin 12.6. Creatinine 1.5. LFTs noted. Urinalysis had 2 to 4 white cells. Cultures are pending. Stool studies have been ordered. Imaging was noted. Abdominal ultrasound showed no cholecystitis. ASSESSMENT/PLAN: 1. The patient has possible colitis. He has diarrhea, rule out infectious diarrhea versus C. diff. The patient will be continued on Cipro and Flagyl. Check stool studies. The patient may need CT scan of the abdomen and pelvis and GI evaluation. The patient may need a colonoscopy if the diarrhea persists. Continue Cipro and Flagyl for possible infectious diarrhea, C. diff, and colitis. 2. HIV and AIDS. We will continue anti-retroviral therapy. Check CD4 viral load. 3. Continue Bactrim and azithromycin prophylaxis. 4. Elevated creatinine. 5. Right flank/back and trunk herpes zoster virus infection, shingles. Lesions looks dry. Continue Valtrex. 6. Anemia. 7. CHF and edema of the legs. 8. History of substance abuse. 9. Social history is positive for cocaine and PCP. 10. Allergy to latex. 11. Family history is noncontributory. 12. MAR was noted. 13. Case was discussed with RN. 14. Case was discussed with the patient. 15. Continue treatment per primary consultants. Ninfa Setih M.D. DR: NADEGE JOB#: [id number] CC: [email or web address]
[2019-05-30 04:00] VITALS: BP 164/99
--- NOTE | 2019-05-30 04:00 | NUR ---
NURSE NOTES: Left msg for Dr. Christensen on 05/29 @2130, attemped to call her office number at [phone] and attempted to call Dr. Loyd. 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 Patient complaints of Shingles pain and radiating throughout the back; stating that the Tramadol PO does not work and would like an order for Morphine IV instead. Many attempts made to obtain orders. Patient became upset and agitated. Charge nurse and house sup aware.
[2019-05-30 04:59] LABS: BASOPHILS % (AUTO) 1.2 % (0.0-2.0); EOSINOPHILS % (AUTO) 1.4 % (0.0-3.0); HEMATOCRIT 35.8 % (42.0-52.0); HEMOGLOBIN 11.7 G/DL (14.2-18.0); LYMPHOCYTES % (AUTO) 42.1 % (20.0-45.0); MEAN CORPUSCULAR VOLUME 92 FL (80-99); MONOCYTES % (AUTO) 14.1 % (1.0-10.0); NEUTROPHILS % (AUTO) 41.2 % (45.0-75.0); PLATELET COUNT 231 K/UL (150-450); RED BLOOD COUNT 3.89 M/UL (4.70-6.10); RED CELL DISTRIBUTION WIDTH 13.2 % (11.6-14.8); WHITE BLOOD COUNT 5.2 K/UL (4.8-10.8)
[2019-05-30 05:04] LABS: ANION GAP 6 mmol/L (5-15); BLOOD UREA NITROGEN 16 mg/dL (7-18); CALCIUM 10.1 MG/DL (8.5-10.1); CARBON DIOXIDE 25 MMOL/L (21-32); CHLORIDE 105 MMOL/L (98-107); CREATININE 1.2 MG/DL (0.55-1.30); POTASSIUM 3.8 MMOL/L (3.5-5.1); SODIUM 136 MMOL/L (136-145)
--- NOTE | 2019-05-30 05:57 | NUR ---
NURSE NOTES: Dr Malcolm called back covering Dr. Christensen. He does not recommend order Morphine for patient and advised for patient to speak with Dr. Christensen in the later morning. For pain management at the moment he ordered Gabapentin 100mg once.
[2019-05-30] MEDS: metroNIDAZOLE 500mg tab ORAL SCH ×3 (06:04→21:34)
[2019-05-30] MEDS: valACYclovir HCL 500mg tab ORAL SCH ×3 (06:04→21:34)
[2019-05-30] MEDS: NovoLOG Insulin Flexpen SUBQ SCH ×4 (06:09→21:30)
--- NOTE | 2019-05-30 07:15 | NUR ---
HAND-OFF: Report given to NIMO Cortes.
[2019-05-30 07:46] VITALS: BP 142/96
[2019-05-30] MEDS: Patient's Own Med - Tivicay 50mg ORAL SCH ×2 (08:04→20:49)
[2019-05-30] MEDS: Ciprofloxacin 500mg tab ORAL SCH ×2 (08:05→20:49)
[2019-05-30] MEDS: Aspirin Baby 81mg ORAL SCH (08:05)
[2019-05-30] MEDS: Patient's Own Med - Norvir 100mg ORAL SCH ×2 (08:05→20:49)
[2019-05-30] MEDS: Heparin 5000 units/ml inj SUBQ SCH ×2 (08:10→20:50)
[2019-05-30] MEDS ORDERED: Dolutegravir Sodium 50mg tab ORAL SCH ×2 (09:00)
[2019-05-30] MEDS: Tamsulosin 0.4mg cap ORAL SCH (09:01)
[2019-05-30] MEDS: Bactrim-DS 1 tab ORAL SCH (09:01)
--- NOTE | 2019-05-30 10:30 | NUR ---
NURSE NOTES:PT D/D ISOLATION BY MATEUS INFECTION CONTROL DPT. PT TRANSFER VIA W/C ON STABLE CONDITIONS TO [facility] ,ROOM 218. REPORT GIVEN [place]ON SUERO STAFF OF [facility].
--- NOTE | 2019-05-30 10:51 | NUR ---
NURSE NOTES: Received patient from NIMO Browne. Patient transferred from [facility] to TELE rm [id number] via wheel chair. Patient is AO X4, able to make needs known, denies any pain at this time. No acute distress noted. All belongings accounted for, signed by both the transferring and receiving nurses and with patient. Patient is on gambling monitor, on RA. IV is intact and patent SL. Noted patient has bilateral lower edema and right dry mild back (flank area) shingles. Bed is in lowest level, brakes engaged for safety, call light is within easy reach. Will continue with the plan of care.
[2019-05-30 12:00] VITALS: BP 127/89
--- NOTE | 2019-05-30 12:32 | NUR ---
NURSE NOTES: Patient is complaining of generalized pain 9/10 and requesting for Morphine for pain. Notified Dr. Christensen, expecting a call back.
--- NOTE | 2019-05-30 12:42 | NUR ---
NURSE NOTES: Dr. Christensen called back, new order of Robaxin 500mg TID prn. order carried out. Will continue to monitor.
[2019-05-30] MEDS: Methocarbamol 500mg tab ORAL PRN (13:51)
--- NOTE | 2019-05-30 14:54 | History and Physical ---
History of Present Illness General Reason for Hospitalization: Abdominal Pain Present Illness HPI patient was admitted for diarrhea, lisa and abd pain under observation and is now requiring admission for further workup. Patient had abd us done which was negative and pain resolved. Patient was recently placed on cipro and flagyl for colitis at [facility]sh on which was continued. After admission patient stated his diarrhea and abd pain resolved. He was found to be cocaine and opioid positive. He was also diagnosed with shingles on right right flank and started on treatment. Today patient was started on gabapentin for his pain and he said it helped him. He denies abd pain, fevers, chills, sob, cp, diarrhea. He has been ambulating the halls. Allergies: Coded Allergies: LATEX (Verified Allergy, Unknown, 05/28/19) Medication History Scheduled Atorvastatin (Lipitor), 40 MG ORAL DAILY, (Reported) Azithromycin (Azithromycin), 600 MG ORAL Weekly-Sun, (Reported) Ciprofloxacin Hcl (Ciprofloxacin Hcl*), 500 MG ORAL DAILY, (Reported) Darunavir Ethanolate (Prezista), 600 MG ORAL BID, (Reported) Dolutegravir Sodium (Tivicay), 50 MG ORAL DAILY, (Reported) Dolutegravir Sodium (Tivicay), 50 MG ORAL DAILY, (Reported) Dolutegravir Sodium (Tivicay), 50 MG ORAL BID, (Reported) Famotidine (Famotidine), 20 MG ORAL BID, (Reported) Metronidazole* (Flagyl*), 500 MG ORAL EVERY 8 HOURS, (Reported) Ritonavir* (Norvir*), 100 MG ORAL TWICE A DAY, (Reported) Spironolactone* (Spironolactone*), 25 MG ORAL DAILY, (Reported) Tamsulosin HCl (Flomax), 0.4 MG ORAL DAILY, (Reported) Trimethoprim/Sulfamethoxazole (Bactrim Ds Tablet), 1 TAB ORAL TWICE A DAY, ( Reported) Miscellaneous Medications Chromium Picolinate (Chromium Picolinate), 800 MCG PO, (Reported) Etravirine (Intelence), 200 MG ORAL, (Reported) Insulin Regular, Human (Humulin R), 0 SUBQ, (Reported) Patient History Healthcare decision maker Resuscitation status Full Code Advanced Directive on File Social History Social History: (1) Substance abuse Review of Systems All Other Systems: negative except mentioned in HPI Physical Exam Last 24 Hour Vital Signs Date Time Temp Pulse Resp B/P (MAP) Pulse Ox O2 Delivery O2 Flow Rate FiO2 05/30/19 12:00 97.7 81 20 127/89 (102) 96 05/30/19 12:00 73 05/30/19 09:16 83 20 93 Room Air 21 05/30/19 09:00 Room Air 05/30/19 07:46 97.0 79 20 142/96 (111) 94 05/30/19 07:28 81 05/30/19 04:00 97.7 76 18 164/99 (120) 91 05/30/19 03:56 71 05/30/19 00:20 90 05/30/19 00:00 97.0 98 18 127/84 (98) 96 05/29/19 21:00 Room Air 05/29/19 20:00 97.7 85 20 142/89 (106) 95 05/29/19 19:41 76 05/29/19 16:00 97.0 73 18 118/73 (88) 95 05/29/19 15:48 80 Intake and Output 05/29/19 05/30/19 19:00 07:00 Intake Total 800 ml 500 ml Output Total 900 ml Balance 800 ml -400 ml Intake Oral 800 ml 500 ml Output Urine Total 900 ml # Voids 4 2 # Bowel Movements 2 Laboratory Tests Test 05/29/19 21:20 05/30/19 04:00 White Blood Count Pending 5.2 K/UL (4.8-10.8) Lymphocytes Pending Percent CD3 Cells Pending Absolute CD3 Count Pending Percent CD4 Cells Pending Absolute CD4 Count Pending T-Lymphocyte CD4/CD8 Ratio Pending Percent CD8 Cells Pending Absolute CD8 Count Pending HIV-1 RNA (PCR) log10 Value Pending HIV-1 RNA Ultraquantitative (PCR) Pending Red Blood Count 3.89 M/UL (4.70-6.10) L Hemoglobin 11.7 G/DL (14.2-18.0) L Hematocrit 35.8 % (42.0-52.0) L Mean Corpuscular Volume 92 FL (80-99) Mean Corpuscular Hemoglobin 30.0 PG (27.0-31.0) Mean Corpuscular Hemoglobin Concent 32.6 G/DL (32.0-36.0) Red Cell Distribution Width 13.2 % (11.6-14.8) Platelet Count 231 K/UL (150-450) Mean Platelet Volume 6.1 FL (6.5-10.1) L Neutrophils (%) (Auto) 41.2 % (45.0-75.0) L Lymphocytes (%) (Auto) 42.1 % (20.0-45.0) Monocytes (%) (Auto) 14.1 % (1.0-10.0) H Eosinophils (%) (Auto) 1.4 % (0.0-3.0) Basophils (%) (Auto) 1.2 % (0.0-2.0) Sodium Level 136 MMOL/L (136-145) Potassium Level 3.8 MMOL/L (3.5-5.1) Chloride Level 105 MMOL/L (98-107) Carbon Dioxide Level 25 MMOL/L (21-32) Anion Gap 6 mmol/L (5-15) Blood Urea Nitrogen 16 mg/dL (7-18) Creatinine 1.2 MG/DL (0.55-1.30) Estimat Glomerular Filtration Rate > 60 mL/min (>60) Glucose Level 100 MG/DL (74-106) Calcium Level 10.1 MG/DL (8.5-10.1) Microbiology Date/Time Source Procedure Growth Status 05/29/19 16:50 Stool Clostridium difficile Toxin Assay - Final Complete Height (Feet): 5 Height (Inches): 6.00 Weight (Pounds): 221 Medications Current Medications Medications (Trade) Dose Ordered Sig/Cara Route PRN Reason Start Time Stop Time Status Last Admin Dose Admin Acetaminophen (Tylenol) 650 mg Q4H PRN ORAL Mild Pain (Pain Scale 1-3) 05/29/19 03:15 06/28/19 03:14 05/29/19 08:30 Albuterol/ Ipratropium (Albuterol/ Ipratropium) 3 ml Q4H PRN HHN Shortness of Breath 05/29/19 03:15 06/03/19 03:14 Aspirin (ASA) 81 mg DAILY ORAL 05/29/19 09:00 06/28/19 08:59 05/30/19 08:05 Azithromycin (Zithromax) 600 mg ONCE A WEEK ORAL 05/29/19 10:00 06/05/19 09:59 05/29/19 12:17 Ciprofloxacin (Cipro 500mg tab) 500 mg EVERY 12 HOURS ORAL 05/29/19 21:00 06/01/19 20:59 05/30/19 08:05 Dextrose (Dextrose 50%) 25 ml Q30M PRN IV Hypoglycemia 05/29/19 10:15 06/28/19 10:14 Dextrose (Dextrose 50%) 50 ml Q30M PRN IV Hypoglycemia 05/29/19 10:15 06/28/19 10:14 Famotidine (Pepcid) 20 mg BID ORAL 05/29/19 18:00 06/28/19 17:59 05/30/19 08:06 Heparin Sodium (Porcine) (Heparin 5000 units/ml) 5,000 units EVERY 12 HOURS SUBQ 05/29/19 09:00 06/28/19 08:59 05/30/19 08:10 Insulin Aspart (NovoLOG) BEFORE MEALS AND HS SUBQ 05/29/19 11:30 06/28/19 11:29 Methocarbamol (Robaxin) 500 mg TIDPRN PRN ORAL FOR PAIN 05/30/19 12:45 06/29/19 12:44 05/30/19 13:51 Metronidazole (Flagyl) 500 mg EVERY 8 HOURS ORAL 05/29/19 14:00 06/05/19 13:59 05/30/19 13:50 Patient Own Medication (Patient's Own Med) 1 ea Q12HR ORAL 05/30/19 09:00 06/29/19 08:59 05/30/19 08:04 Patient Own Medication (Patient's Own Med) 1 ea Q12HR ORAL 05/30/19 09:00 06/29/19 08:59 05/30/19 08:04 Patient Own Medication (Patient's Own Med) 1 ea Q12HR ORAL 05/30/19 09:00 06/29/19 08:59 05/30/19 08:05 Patient Own Medication (Patient's Own Med) 1 ea Q12HR ORAL 05/30/19 09:00 06/29/19 08:59 05/30/19 08:06 Tamsulosin HCl (Flomax) 0.4 mg DAILY ORAL 05/30/19 09:00 06/29/19 08:59 8/20/19 09:01 Tramadol HCl (Ultram) 50 mg Q6H PRN ORAL Moderate Pain (Pain Scale 4-6) 05/29/19 13:45 06/05/19 13:44 05/29/19 23:18 Trimethoprim/ Sulfamethoxazole (Bactrim-DS) 1 tab DAILY ORAL 05/30/19 09:00 06/06/19 08:59 05/30/19 09:01 Valacyclovir HCl (Valtrex) 1,000 mg Q8HR ORAL 05/29/19 14:00 06/05/19 06:01 05/30/19 14:45 Objective Narrative gen: wdwn, ncat, alert, talkative heent: eomi, nonicteric cv: rrr, no m/r/g resp: ctab, no w,r,c ext: 2+ bl pitting edema Assessment/Plan Diagnosis F[place] I: 58 yo male with PMH of [place] diagnose in 10/2018 (reports no stents), HIV, and CHF, presents complaining of abd pain that has resolved and right sided flank pain # Right flank pain 2/2 shingles - valacyclovir 1gm tid x 7 days (05/29-) - started patient on gabapentin, monitor renal function and adjust as needed # HIV - cont home meds - ID consult - follows up with HIV doc outpatient # Add pain - resolved # Recent dx of colitis at [facility]sh - per patient he was started on cipro and flagyl on - continue abx - cdiff negative # LISA vs CKD - hold ivf and lasix - trend bmp - nephro consult: Dr. Thornton - plan to monitor pain and kidney function with change of meds per renal, and if stable can dc home w tomorrow # Chronic CHF, - tte: wnl - cardiac meds - med changes per renal, started lasix po 20 daily today, monitor cr # Substance abuse - cocaine and pcp positive - monitor - hold ivf - monitor for withdrawal - sw consult # FULL CODE Time of note may not reflex time of encounter Paige Christensen DO May 30, 2019 14:54
--- NOTE | 2019-05-30 15:47 | Nephrology Progress Note ---
Assessment/Plan Problem List: (1) CHF (congestive heart failure) (2) Substance abuse (3) Edema (4) Abdominal pain Plan #LISA- likely due to CRS- #flank pain due to shingles #HIV #CHF # Substance abuse - resume lasis 20mg daily - hold aldactone for now - avoid nephrotoxins - trend BMP in am - f/u 2d echo - on valtrex - monitor for nephrotoxicity Subjective Interval Events/Complaints no acute events overnight breathing Ok Cr down to 1.2 Constitutional: Denies: no symptoms, chills, diaphoresis, fever, malaise, weakness, other HEENT: Denies: no symptoms, eye pain, blurred vision, tearing, double vision, ear pain, ear discharge, nose pain, nose congestion, throat pain, throat swelling, mouth pain, mouth swelling, other Genitourinary: Denies: no symptoms, burning, discharge, frequency, flank pain, hematuria, incontinence, pain, urgency, other Neurologic/Psychiatric: Denies: no symptoms, anxiety, depressed, emotional problems, headache, numbness, paresthesia, pre-existing deficit, seizure, tingling, tremors, weakness, other Objective Objective Last 24 Hour Vital Signs Date Time Temp Pulse Resp B/P (MAP) Pulse Ox O2 Delivery O2 Flow Rate FiO2 05/30/19 12:00 97.7 81 20 127/89 (102) 96 05/30/19 12:00 73 05/30/19 09:16 83 20 93 Room Air 21 05/30/19 09:00 Room Air 05/30/19 07:46 97.0 79 20 142/96 (111) 94 05/30/19 07:28 81 05/30/19 04:00 97.7 76 18 164/99 (120) 91 05/30/19 03:56 71 05/30/19 00:20 90 05/30/19 00:00 97.0 98 18 127/84 (98) 96 05/29/19 21:00 Room Air 05/29/19 20:00 97.7 85 20 142/89 (106) 95 05/29/19 19:41 76 05/29/19 16:00 97.0 73 18 118/73 (88) 95 05/29/19 15:48 80 Intake and Output 05/29/19 05/30/19 19:00 07:00 Intake Total 800 ml 500 ml Output Total 900 ml Balance 800 ml -400 ml Intake Oral 800 ml 500 ml Output Urine Total 900 ml # Voids 4 2 # Bowel Movements 2 Laboratory Tests 05/29/19 21:20: White Blood Count [Pending], Lymphocytes [Pending], Percent CD3 Cells [Pending] , Absolute CD3 Count [Pending], Percent CD4 Cells [Pending], Absolute CD4 Count [Pending], T-Lymphocyte CD4/CD8 Ratio [Pending], Percent CD8 Cells [Pending], Absolute CD8 Count [Pending], HIV-1 RNA (PCR) log10 Value [Pending], HIV-1 RNA Ultraquantitative (PCR) [Pending] 05/30/19 04:00: White Blood Count 5.2, Red Blood Count 3.89L, Hemoglobin 11.7L, Hematocrit 35.8L , Mean Corpuscular Volume 92, Mean Corpuscular Hemoglobin 30.0, Mean Corpuscular Hemoglobin Concent 32.6, Red Cell Distribution Width 13.2, Platelet Count 231, Mean Platelet Volume 6.1L, Neutrophils (%) (Auto) 41.2L, Lymphocytes (%) (Auto) 42.1, Monocytes (%) (Auto) 14.1H, Eosinophils (%) (Auto) 1.4, Basophils (%) (Auto) 1.2, Sodium Level 136, Potassium Level 3.8, Chloride Level 105, Carbon Dioxide Level 25, Anion Gap 6, Blood Urea Nitrogen 16, Creatinine 1.2, Estimat Glomerular Filtration Rate > 60, Glucose Level 100, Calcium Level 10.1 Height (Feet): 5 Height (Inches): 6.00 Weight (Pounds): 221 Objective GEN: WWN, NAD, Alert CV: RRR, no M, R, G, no jvd RESP: CTAB, no w/r/c ABD: normal bowel sounds, soft, mild diffuse tenderness EXT: normal muscle tone, no tenderness, 1+ pitting edema bl NEURO: grossly normal, no tremors, a x o x 3 skin: right flank with vesicular lesions in dermatomal pattern Jaylan Thornton M.D. May 30, 2019 15:47
[2019-05-30 16:00] VITALS: BP 120/75
[2019-05-30] MEDS ORDERED: ALBUTEROL2.5 MG/3 M INH (19:04)
--- NOTE | 2019-05-30 19:29 | NUR ---
HAND-OFF: Report given to NIMO Luis. Patient is in stable condition.
--- NOTE | 2019-05-30 19:33 | NUR ---
NURSE NOTES: Received patient from NIMO Cline. Patient is AO X4. No acute distress noted. . 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 IV is intact and patent SL. Noted patient has bilateral lower edema and right dry mild back (flank area) shingles. Bed is in lowest level, brakes engaged for safety, call light is within easy reach. Will continue with the plan of care.
[2019-05-30 20:00] VITALS: BP 137/86
[2019-05-31] VITALS: BP 139/82
[2019-05-31] MEDS: Methocarbamol 500mg tab ORAL PRN ×2 (00:32→11:03)
[2019-05-31 04:00] VITALS: BP 137/68
[2019-05-31] MEDS: metroNIDAZOLE 500mg tab ORAL SCH ×2 (05:35→14:14)
[2019-05-31] MEDS: valACYclovir HCL 500mg tab ORAL SCH ×2 (05:35→14:14)
[2019-05-31] MEDS: NovoLOG Insulin Flexpen SUBQ SCH ×3 (06:30→16:30)
[2019-05-31 06:47] LABS: BASOPHILS % (AUTO) 1.5 % (0.0-2.0); EOSINOPHILS % (AUTO) 0.9 % (0.0-3.0); HEMATOCRIT 38.1 % (42.0-52.0); HEMOGLOBIN 12.2 G/DL (14.2-18.0); LYMPHOCYTES % (AUTO) 46.8 % (20.0-45.0); MEAN CORPUSCULAR VOLUME 93 FL (80-99); MONOCYTES % (AUTO) 13.7 % (1.0-10.0); NEUTROPHILS % (AUTO) 37.2 % (45.0-75.0); PLATELET COUNT 253 K/UL (150-450); RED CELL DISTRIBUTION WIDTH 13.6 % (11.6-14.8); WHITE BLOOD COUNT 5.5 K/UL (4.8-10.8)
--- NOTE | 2019-05-31 07:01 | NUR ---
HAND-OFF: Report given to NIMO Horn. Endorsed plan of care.
--- NOTE | 2019-05-31 07:06 | NUR ---
NURSE NOTES: Received report from NIMO Luis. Patient is AO X4 in bed resting, denies any pain at this time. No acute distress noted. . 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 Noted patient has bilateral lower edema and right dry mild back (flank area) shingles. Bed is in lowest level, brakes engaged for safety, call light is within easy reach. Will continue with the plan of care.
[2019-05-31 07:14] LABS: ANION GAP 7 mmol/L (5-15); BLOOD UREA NITROGEN 13 mg/dL (7-18); CALCIUM 10.3 MG/DL (8.5-10.1); CARBON DIOXIDE 25 MMOL/L (21-32); CHLORIDE 107 MMOL/L (98-107); CHOLESTEROL 172 MG/DL (< 200); CREATININE 1.2 MG/DL (0.55-1.30); HDL CHOLESTEROL 58 MG/DL (40-60); POTASSIUM 3.9 MMOL/L (3.5-5.1); SODIUM 139 MMOL/L (136-145); TRIGLYCERIDES 141 MG/DL (30-150)
[2019-05-31 08:00] VITALS: BP 114/74
--- NOTE | 2019-05-31 08:10 | NUR ---
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
[2019-05-31] MEDS: Aspirin Baby 81mg ORAL SCH (08:50)
[2019-05-31] MEDS: Ciprofloxacin 500mg tab ORAL SCH (08:50)
[2019-05-31] MEDS: Patient's Own Med - Norvir 100mg ORAL SCH (08:51)
[2019-05-31] MEDS: Patient's Own Med - Tivicay 50mg ORAL SCH (08:52)
[2019-05-31] MEDS: Heparin 5000 units/ml inj SUBQ SCH (08:56)
[2019-05-31] MEDS: Bactrim-DS 1 tab ORAL SCH (09:19)
[2019-05-31] MEDS: Tamsulosin 0.4mg cap ORAL SCH (09:19)
--- NOTE | 2019-05-31 10:29 | NUR ---
CASE MANAGEMENT: REVIEW 05/30/2019 SI:GASTROENTERITIS AND COLITIS. T 96.4 HR 76 RR 20 B/P 137/86 SATS 94% ON RA LABS WNL IS:FLAGYL PO Q8H CIPRO PO Q12H AZITHROMYCIN PO QWEEK PEPCID PO BID FLOMAX PO QD BACTRIM PO QD GABAPENTIN PO QD INSULIN ASPART SUBQ AC/HS TELE 05/31/2019 SI:GASTROENTERITIS AND COLITIS. T 96.8 HR 73 RR 18 B/P 137/68 SATS 98% ON RA GLU 112 CA 10.3 IS:FLAGYL PO Q8H CIPRO PO Q12H AZITHROMYCIN PO QWEEK PEPCID PO BID FLOMAX PO QD BACTRIM PO QD GABAPENTIN PO QD INSULIN ASPART SUBQ AC/HS TELE PLAN OF CARE: DC PLANNING
--- NOTE | 2019-05-31 10:40 | NUR ---
INSURANCE CLINICALS FAXED TO AUTH#[id number] FAX ALL CLINICALS TO [phone]
--- NOTE | 2019-05-31 10:57 | NUR ---
DISCHARGE PLANNING: NOTE CLINICALS FAXED TO [facility] FOR REVIEW T: [phone] Addendum: 05/31/19 at 1149 by Mariah Livingston CM PER BELKIS PATIENT IS NOT BEING ACCEPTED TO [facility] Addendum: 05/31/19 at 1204 by Mariah Livingston CM DR ARTHUR IS AWARE
[2019-05-31] MEDS ORDERED: CIPROFLOXACIN500 M2 ORAL (11:14)
[2019-05-31] MEDS ORDERED: FLAGYL500 MG ORAL (11:14)
[2019-05-31] MEDS ORDERED: VALTREX500 MG ORAL (11:14)
[2019-05-31 12:00] VITALS: BP 131/77
[2019-05-31] MEDS ORDERED: GABAPENTIN100 MG ORAL (12:26)
--- NOTE | 2019-05-31 14:18 | Discharge Summary ---
Discharge Summary Hospital Course Date of Admission May 29, 2019 at 19:15 Date of Discharge 05/31/19 Admitting Diagnosis Congestive Heart Failure Reason for Hospitalization: abd pain, shingles, heaven, chf exacerbation HPI Donal Aranda is a 58 year old male who was admitted on May 29, 2019 at 19: 15 for Congestive Heart Failure Consultations Nephro ID Procedures none Hospital Course Patient was discharged from [facility] on prior to admission for colitis. He came to ED complaining of continued pain in the abdomen that is non radiating and diarrhea. UDS was positive for cocaine and benzo. Patient was seen and admitted for abx and work up of diarrhea, however his diarrhea stopped on admission.Patient cdiff was negative. He had abd us done that was normal . The day after admission he complained of right flank pain and was found to have shingles. He was started on treatment as well as continued on cipro and flagyl from admission. He also had heaven on admission that resolved. Patient was discharged in stable condition with pain improved and shingles rash improved on medication. He was instructed to take prescribed abx for 5 days as per ID reqs. Discharge Medications New Medications: Ciprofloxacin Hcl* (Ciprofloxacin Hcl*) 500 Mg Tablet 500 MG ORAL EVERY 12 HOURS for 5 Days, #10 TAB Gabapentin* (Gabapentin*) 100 Mg Capsule 100 MG ORAL DAILY for 30 Days, #30 CAP Metronidazole* (Flagyl*) 500 Mg Tablet 500 MG ORAL EVERY 8 HOURS for 5 Days, #15 TAB Valacyclovir Hcl* (Valtrex*) 500 Mg Tablet 1000 MG ORAL Q8HR for 5 Days, #15 TAB Continued Medications: Albuterol Sulfate* (Albuterol Sulfate Hhn*) 2.5 Mg/3 Ml Vial.neb Unknown Dose INH Q4H PRN for Shortness of Breath, EA (This prescription has been renewed) Atorvastatin (Lipitor) 80 Mg Tablet 40 MG ORAL DAILY, TAB 0 Refills (This prescription has been renewed) Azithromycin (Azithromycin) 500 Mg Tablet 600 MG ORAL Weekly-Sun, TAB (This prescription has been renewed) 2 Tabs oral every week-SUN Chromium Picolinate (Chromium Picolinate) 400 Mcg Tablet 800 MCG PO, TAB (This prescription has been renewed) Darunavir Ethanolate (Prezista) 800 Mg Tablet 600 MG ORAL BID, TAB (This prescription has been renewed) Dolutegravir Sodium (Tivicay) 50 Mg Tablet 50 MG ORAL BID, TAB (This prescription has been renewed) Etravirine (Intelence) 200 Mg Tablet 200 MG ORAL DAILY, TAB 0 Refills Famotidine (Famotidine) 20 Mg Tablet 20 MG ORAL BID, #30 TAB 0 Refills (This prescription has been renewed) Insulin Regular, Human (Humulin R) 100 Unit/1 Ml Vial 0 SUBQ, VIAL (This prescription has been renewed) Ritonavir* (Norvir*) 100 Mg Capsule 100 MG ORAL TWICE A DAY, #60 CAP (This prescription has been renewed) Spironolactone* (Spironolactone*) 100 Mg Tablet 25 MG ORAL DAILY, TAB (This prescription has been renewed) Tamsulosin HCl (Flomax) 0.4 Mg Cap.er.24h 0.4 MG ORAL DAILY, CAP (This prescription has been renewed) Trimethoprim/Sulfamethoxazole (Bactrim Ds Tablet) 1 Each Tablet 1 TAB ORAL DAILY, TAB Discharge Condition Upon Discharge: stable Discharge Disposition Patient was discharged to home Discharge Diagnoses: (1) Acute exacerbation of congestive heart failure (2) Abdominal pain (3) Substance abuse (4) CHF (congestive heart failure) (5) Edema Paige Christensen DO May 31, 2019 14:18
[2019-05-31 16:00] VITALS: BP 135/85
--- NOTE | 2019-05-31 18:30 | NUR ---
NURSE NOTES: Patient is discharged home per MD order, via Tax[employer]. media monitor removed, IV removed, no s/s of bleeding or infiltration noted. Belonging list accounted for and signed by the patient and RN. Patients own medication picked up from pharmacy and handed to patient. Patients prescription ordered by Dr. Christensen from [facility] also given to patient. Patient is in stable condition.
--- NOTE | 2019-06-01 09:44 | NUR ---
*-* INSURANCE *-* ALL CLINICALS AND REVIEWS HAVE BEEN FAXED TO: [facility]:[place] P: [phone] F: [phone] REF# [id number]
--- NOTE | 2019-06-02 13:30 | NUR ---
*-* INSURANCE *-* DISCHARGE SUMMARY HAS BEEN FAXED TO: [facility]:[place] P: [phone] F: [phone] REF# [id number]
--- NOTE | 2019-06-07 23:08 | Coder Physician Query ---
Dear Dr. CHRISTENSEN Date: 06/07/2019 [facility] Consultant/CDS' Name: SiaShariSHAANLYNN, CCS Exercise your independent professional judgment when responding to query. Questions asked do not imply particular answer is desired or expected. We greatly appreciate your clarification on this issue. Heart Failure / CHF" documented in Clinical Documentation States: Discharge Diagnoses: (1) Acute exacerbation of congestive heart failure CHF and edema of the legs. Chronic CHF, - tte: wnl - cardiac meds - med changes per renal, started lasix po 20 daily today, monitor cr Clinical Findings Show: EKG = WNL Troponin = 0 BNP = 47 ECHO = EF = 70-75% Please Clarify CHF: Type: [] Systolic [] Diastolic [] Systolic & Diastolic (Combined) [] Other: Present on Admission: [] Yes [] No [] Clinically Undetermined Paige Christensen M.D. Date Please also document in your Progress Notes and/or Discharge Summary and indicate if the condition was present on admission. MTDD
== END 2019-05-31 18:20 | disposition home or self-care (01) | DRG 194 ==
LOC: EMR 23:57 → 2W 05-29 00:30 → INTOOBSV 05-29 00:30 → OBSVTOIN 05-29 00:30 → EDBEDREQ 05-29 01:15 → OBSVTOIN 05-29 19:15 → 2W 05-29 21:14 → 2E 05-30 10:23
DX: I50.33 Acute on chronic diastolic (congestive) heart failure (principal); A09 Infectious gastroenteritis and colitis, unspecified; B20 Human immunodeficiency virus [HIV] disease; B02.29 Other postherpetic nervous system involvement; N17.9 Acute kidney failure, unspecified; F14.10 Cocaine abuse, uncomplicated; F16.10 Hallucinogen abuse, uncomplicated; Z91.040 Latex allergy status
CPT/HCPCS: 36415; 71045; 74018; 76700; 80048; 80053; 80061; 80307; 81003; 82550; 82962; 83690; 83880; 84443; 84484; 85025; 85610; 85730; 86360; 87045; 87081; 87324; 87536; 93005; 93306; 93970; 94664; 96374; 96375; 99284; J1815; J2405

== ENCOUNTER 2019-06-03 23:57 | Emergency (ER) | payer MEDICAID ==
[~2019-06-03] VITALS: Ht 167.6 cm; Wt 99.8 kg
[~2019-06-03 23:57] MED LIST: ALBUTEROL2.5 MG/3 M INH; AZITHROMYCIN500 MG ORAL; BACTRIM-DS1 EA ORAL; CHROMIUM PICO400 MCG PO; CIPROFLOXACIN500 M2 ORAL; CIPROFLOXACIN750 MG ORAL; FAMOTIDINE20 MG ORAL; FLAGYL500 MG ORAL; FLOMAX0.4 MG ORAL; GABAPENTIN100 MG ORAL; HUMULIN R100 UNIT/1 SUBQ; INTELENCE200 MG ORAL; LIPITOR80 MG ORAL; METRONIDAZOLE500 MG ORAL; NORVIR100 MG ORAL; PREZISTA800 MG ORAL; SPIRONOLACTONE100 MG ORAL; TIVICAY50 MG ORAL; VALTREX500 MG ORAL
--- NOTE | 2019-06-04 00:30 | NUR ---
ED Nurse Note: Recieved pt from home, here with c/o mid upper abdominal pain at 10/10 for past 2 days, pt was recently released from hospital for shingles, pt states pain has always been but started to increase again, pt deneis cp, sob, or any other complaints, pt is noted with ble swelling +2, pulses present and pt is ambulatory, immediately assisted to gowning and cardiac monitoring, pt noted with scabed lesions to right flank area, no oozing or redness, appears to be healed, will resume care as ordered and closely monitor.
[2019-06-04] MEDS ORDERED: Isovue-300 100ml vial INJ PRN (00:45)
[2019-06-04] MEDS ORDERED: Morphine Sulfate 2mg/ml Inj(IV/IM USE ONLY) IVP ONE (00:45)
[2019-06-04] MEDS ORDERED: DiphenhydrAMINE 50mg/ml Inj IVP ONE (00:45)
[2019-06-04] MEDS ORDERED: Metoclopramide 10mg/2ml Inj IVP ONE (00:45)
[2019-06-04 01:11] LABS: BASOPHILS % (AUTO) 1.9 % (0.0-2.0); EOSINOPHILS % (AUTO) 0.9 % (0.0-3.0); HEMATOCRIT 36.4 % (42.0-52.0); HEMOGLOBIN 12.2 G/DL (14.2-18.0); LYMPHOCYTES % (AUTO) 35.5 % (20.0-45.0); MEAN CORPUSCULAR VOLUME 92 FL (80-99); MONOCYTES % (AUTO) 12.1 % (1.0-10.0); NEUTROPHILS % (AUTO) 49.6 % (45.0-75.0); PLATELET COUNT 235 K/UL (150-450); RED BLOOD COUNT 3.97 M/UL (4.70-6.10); RED CELL DISTRIBUTION WIDTH 14.5 % (11.6-14.8); WHITE BLOOD COUNT 7.2 K/UL (4.8-10.8)
[2019-06-04 01:20] LABS: ANION GAP 10 mmol/L (5-15); BLOOD UREA NITROGEN 14 mg/dL (7-18); CALCIUM 10.2 MG/DL (8.5-10.1); CARBON DIOXIDE 22 MMOL/L (21-32); CHLORIDE 108 MMOL/L (98-107); CREATININE 1.1 MG/DL (0.55-1.30); POTASSIUM 4.1 MMOL/L (3.5-5.1); SODIUM 140 MMOL/L (136-145)
[2019-06-04 01:25] VITALS: BP 147/69
[2019-06-04 01:25] LABS: ALANINE AMINOTRANSFERASE 53 U/L (12-78); ALBUMIN 3.5 G/DL (3.4-5.0); ALBUMIN/GLOBULIN RATIO 1.2 (1.0-2.7); ALKALINE PHOSPHATASE 56 U/L (46-116); ASPARTATE AMINO TRANSFERASE 35 U/L (15-37); BILIRUBIN,TOTAL 0.3 MG/DL (0.2-1.0); CREATINE KINASE 233 U/L (26-308)
[2019-06-04 01:30] LABS: APPEARANCE,URINE CLEAR; BILIRUBIN, URINE NEGATIVE (NEGATIVE); GLUCOSE, URINE (UA) NEGATIVE (NEGATIVE); KETONES,URINE 2+ (NEGATIVE); LEUKOCYTE ESTERASE ,URINE 1+ (NEGATIVE); NITRITE,URINE NEGATIVE (NEGATIVE); PH,URINE 6 (4.5-8.0); PROTEIN,URINE 2+ (NEGATIVE); UROBILINOGEN,URINE NORMAL MG/DL (0.0-1.0)
[2019-06-04 01:40] LABS: COLOR,URINE YELLOW
--- NOTE | 2019-06-04 02:00 | NUR ---
ED Nurse Note: Pt medicated for pain, meds effective, iv site patent, v/s stable, pt remains with mild pain, currently taking oral contrast for ordered ct-scan, tolerating well, will continue to closely monitor for any changes or distress.
[2019-06-04 03:30] VITALS: BP 139/67
--- NOTE | 2019-06-04 03:57 | Diagnostic Imaging Report ---
EXAM: XR Chest, 1 View CLINICAL HISTORY: ABD PAIN TECHNIQUE: Frontal view of the chest. COMPARISON: 05/29/19 cxr FINDINGS: Lungs: Slightly lower lung volumes. No pulmonary infiltrates shown. Pleural space: Unremarkable. No pneumothorax. Heart: Unremarkable. No cardiomegaly. Mediastinum: Unremarkable. Bones/joints: Unremarkable. Vasculature: Aortic tortuosity and calcification redemonstrated. IMPRESSION: Hypoventilatory chest showing no acute cardiopulmonary process.
--- NOTE | 2019-06-04 04:00 | NUR ---
ED Nurse Note: Pt resting in bed quietly, v/s stable, no sob or labored breathing, appears to be sleeping, arouses easily to verbal stimuli, iv site intact and patent, will continue to closely monitor while waiting for pt disposition, pt reports pain at 4/10.
--- NOTE | 2019-06-04 04:12 | Diagnostic Imaging Report ---
EXAM: CT Abdomen and Pelvis With Intravenous Contrast CLINICAL HISTORY: ABD PAIN TECHNIQUE: Axial computed tomography images of the abdomen and pelvis with intravenous contrast. CTDI is 34.10 mGy and DLP is 1655 mGy-cm. One or more of the following dose reduction techniques were used: automated exposure control, adjustment of the mA and/or kV according to patient size, use of iterative reconstruction technique. COMPARISON: none FINDINGS: Lung bases: Unremarkable. No mass. No consolidation. ABDOMEN: Liver: Unremarkable. No mass. Gallbladder and bile ducts: Unremarkable. No calcified stones. No ductal dilation. Pancreas: Unremarkable. No mass. No ductal dilation. Spleen: Unremarkable. No splenomegaly. Adrenals: Unremarkable. No mass. Kidneys and ureters: Unremarkable. No solid mass. No hydronephrosis. Stomach and bowel: 3 cm gastric diverticulum near the cardia Is of doubtful clinical significance. Mild circumferential wall thickening in the descending portion of the duodenum is nonspecific but could reflect mild duodenitis in the appropriate clinical context. No obstruction. PELVIS: Appendix: No findings to suggest acute appendicitis. Bladder: Unremarkable. No mass. Reproductive: Unremarkable as visualized. ABDOMEN and PELVIS: Intraperitoneal space: Unremarkable. No free air. No significant fluid collection. Bones/joints: No acute fracture. No dislocation. Soft tissues: Unremarkable. Vasculature: Unremarkable. No abdominal aortic aneurysm. Lymph nodes: Unremarkable. No enlarged lymph nodes. IMPRESSION: Possible mild acute duodenitis. Otherwise negative study.
--- NOTE | 2019-06-04 05:02 | Emergency Room Report ---
History of Present Illness General Chief Complaint: Abdominal Pain Present Illness HPI The patient presents with abdominal pain. Is central and more epigastric. He was recently diagnosed with shingles on the right-hand side in his right upper abdomen. He is taking valacyclovir. He reports that the shingles is not where the pain is at this time. Is slight nausea and constipation but moved his bowels this morning. There is no vomiting. There is no hematochezia or melena. He was not discharged with any pain medication. Prior to his presentation he had been hospitalized at [facility] and received Dilaudid IV. He reports the pain is 10/10, aching and burning and constant. It does not radiate to his back. There is no dysuria or hematuria. He denies fevers and chills. The patient has HIV and is on antivirals. During the prior hospitalization his tox screen was positive however he he adamantly denied use of drugs. He denies drug use at this time. He has edema of his lower extremities. When he was hospitalized there was renal insufficiency. At that time he was not discharged with any diuretics. He still is complaining about edema at this time. There is no calf tenderness or pleuritic chest pain. Discharged 05/31 with these d/c diagnoses: (1) Acute exacerbation of congestive heart failure (2) Abdominal pain (3) Substance abuse (4) CHF (congestive heart failure) (5) Edema He also had Shingles. Allergies: Coded Allergies: LATEX (Verified Allergy, Unknown, 05/28/19) Patient History Past Medical History: see triage record, old chart reviewed Social History: Reports: drug use; Denies: smoking, alcohol use Social History Narrative from home Reviewed Nursing Documentation: PMH: Agreed; PSxH: Agreed Nursing Documentation-PMH Hx Cardiac Problems: Yes Hx Hypertension: Yes Hx Asthma: Yes Hx COPD: Yes Hx Diabetes: Yes Hx Neurological Problems: No Review of Systems All Other Systems: negative except mentioned in HPI Physical Exam Vital Signs Date Time Temp Pulse Resp B/P (MAP) Pulse Ox O2 Delivery O2 Flow Rate FiO2 06/04/19 00:09 98.1 86 18 137/83 (101) 96 Room Air Sp02 EP Interpretation: reviewed, normal General Appearance: well appearing, no apparent distress, GCS 15 Head: normocephalic Eyes: bilateral eye normal inspection, bilateral eye PERRL, bilateral eye EOMI , bilateral eye other - Slight exophthalmos ENT: moist mucus membranes Neck: supple Respiratory: chest non-tender, lungs clear, normal breath sounds Cardiovascular #1: regular rate, rhythm Cardiovascular #2: 2+ radial (R) Gastrointestinal: normal inspection, normal bowel sounds, no mass, non- distended, no guarding, no rebound, tenderness - Diffuse, overweight Genitourinary: no CVA tenderness Musculoskeletal: back normal, gait/station normal, normal range of motion Neurologic: alert, oriented x3, grossly normal Psychiatric: mood/affect normal - Pressuring to get pain medication Skin: other - Shingles rash right T7 dermatome Medical Decision Making Diagnostic Impression: Primary Impression: Abdominal pain Qualified Codes: R10.84 - Generalized abdominal pain Additional Impressions: Duodenitis Shingles Qualified Codes: B02.9 - Zoster without complications Edema Qualified Codes: R60.0 - Localized edema ER Course Patient presents with diffuse abdominal pain which is different from the shingles pain. Differential includes gastritis, GERD, pancreatitis, diverticulitis, constipation amongst others. Patient is evaluated with EKG, chest x-ray and labs. CT of the abdomen and pelvis will be performed with oral and IV contrast. The patient is treated with analgesia. He also has evidence of lower extremity edema. If renal function is normal Lasix will be administered. EKG without injury. Chest x-ray unremarkable. Labs with normal white count. Renal function normal. Urinalysis clear. Tox screen negative. Patient sleeping. Abd better. On Pepcid. C/O shingles pain. Zostrix cream applied. Improved pain of shingles. Complaining of repeat pain in his abdomen. Oral analgesia given. Patient improved. No medical emergency or surgical emergency at this time. Patient stable for outpatient observation and treatment. Laboratory Tests Test 06/04/19 00:45 06/04/19 01:15 White Blood Count 7.2 K/UL (4.8-10.8) Red Blood Count 3.97 M/UL (4.70-6.10) L Hemoglobin 12.2 G/DL (14.2-18.0) L Hematocrit 36.4 % (42.0-52.0) L Mean Corpuscular Volume 92 FL (80-99) Mean Corpuscular Hemoglobin 30.8 PG (27.0-31.0) Mean Corpuscular Hemoglobin Concent 33.6 G/DL (32.0-36.0) Red Cell Distribution Width 14.5 % (11.6-14.8) Platelet Count 235 K/UL (150-450) Mean Platelet Volume 6.4 FL (6.5-10.1) L Neutrophils (%) (Auto) 49.6 % (45.0-75.0) Lymphocytes (%) (Auto) 35.5 % (20.0-45.0) Monocytes (%) (Auto) 12.1 % (1.0-10.0) H Eosinophils (%) (Auto) 0.9 % (0.0-3.0) Basophils (%) (Auto) 1.9 % (0.0-2.0) Prothrombin Time 10.2 SEC (9.30-11.50) Prothrombin Time INR 1.0 (0.9-1.1) PTT 27 SEC (23-33) Sodium Level 140 MMOL/L (136-145) Potassium Level 4.1 MMOL/L (3.5-5.1) Chloride Level 108 MMOL/L (98-107) H Carbon Dioxide Level 22 MMOL/L (21-32) Anion Gap 10 mmol/L (5-15) Blood Urea Nitrogen 14 mg/dL (7-18) Creatinine 1.1 MG/DL (0.55-1.30) Estimate Glomerular Filtration Rate > 60 mL/min (>60) Glucose Level 96 MG/DL (74-106) Calcium Level 10.2 MG/DL (8.5-10.1) H Total Bilirubin 0.3 MG/DL (0.2-1.0) Aspartate Amino Transferase (AST) 35 U/L (15-37) Alanine Aminotransferase (ALT) 53 U/L (12-78) Alkaline Phosphatase 56 U/L (46-116) Total Creatine Kinase 233 U/L (26-308) Troponin I 0.000 ng/mL (0.000-0.056) Total Protein 6.5 G/DL (6.4-8.2) Albumin 3.5 G/DL (3.4-5.0) Globulin 3.0 g/dL Albumin/Globulin Ratio 1.2 (1.0-2.7) Lipase 77 U/L (73-393) Urine Color Yellow Urine Appearance Clear Urine pH 6 (4.5-8.0) Urine Specific [place] 1.025 (1.005-1.035) Urine Protein 2+ (NEGATIVE) H Urine Glucose (UA) Negative (NEGATIVE) Urine Ketones 2+ (NEGATIVE) H Urine Blood Negative (NEGATIVE) Urine Nitrite Negative (NEGATIVE) Urine Bilirubin Negative (NEGATIVE) Urine Urobilinogen Normal MG/DL (0.0-1.0) Urine Leukocyte Esterase 1+ (NEGATIVE) H Urine RBC 0-2 /HPF (0 - 0) H Urine WBC 2-4 /HPF (0 - 0) Urine Squamous Epithelial Cells Few /LPF (NONE/OCC) Urine Bacteria Few /HPF (NONE) Urine Mucus Few /LPF (NONE/OCC) H Urine Opiates Screen Negative (NEGATIVE) Urine Barbiturates Screen Negative (NEGATIVE) Phencyclidine (PCP) Screen Negative (NEGATIVE) Urine Amphetamines Screen Negative (NEGATIVE) Urine Benzodiazepines Screen Negative (NEGATIVE) Urine Cocaine Screen Negative (NEGATIVE) Urine Marijuana (THC) Screen Negative (NEGATIVE) EKG Diagnostic Results Rate: normal Rhythm: NSR ST Segments: no acute changes Rhythm Strip Diag. Results EP Interpretation: yes Rhythm: NSR, no PVC's, no ectopy Chest X-Ray Diagnostic Results Chest X-Ray Diagnostic Results : Chest X-Ray Ordered: Yes # of Views/Limited/Complete: 1 View Indication: Other EP Interpretation: Yes Interpretation: no consolidation, no effusion, no pneumothorax, other - Hypoventilation no congestive heart failure Impression: Other Electronically Signed by: Electronically signed by Miguel Mojica MD CT/MRI/US Diagnostic Results CT/MRI/US Diagnostic Results : Imaging Test Ordered: Abdomen and pelvis Impression IMPRESSION: Possible mild acute duodenitis. Otherwise negative study. Last Vital Signs Date Time Temp Pulse Resp B/P (MAP) Pulse Ox O2 Delivery O2 Flow Rate FiO2 06/04/19 06:05 98.4 81 16 129/74 99 Room Air Status: improved Disposition: HOME, SELF-CARE Condition: Improved Scripts Furosemide* (LASIX*) 20 Mg Tablet 20 MG ORAL DAILY, #6 TAB Prov: Miguel Mojica MD 06/04/19 Pantoprazole* (PROTONIX*) 40 Mg Tablet.dr 40 MG ORAL DAILY, #30 TAB Prov: Miguel Mojica MD 06/04/19 Tramadol Hcl* (ULTRAM*) 50 Mg Tablet 50 MG ORAL Q6H PRN for For Pain, #6 TAB 0 Refills Prov: Miguel Mojica MD 06/04/19 Capsaicin (Zostrix Hp) 56.6 Gm Cream..g. 1 APPLIC TP DAILY, #60 GM Prov: Miguel Mojica MD 06/04/19 Referrals: NON PHYSICIAN (PCP) Miguel Mojica MD Jun 04, 2019 05:02
[2019-06-04] MEDS ORDERED: FUROSEMIDE20 M1 ORAL (05:08)
[2019-06-04] MEDS ORDERED: ZOSTRIX HP56.6 G2 TP (05:08)
[2019-06-04] MEDS ORDERED: PROTONIX40 MG ORAL (05:08)
[2019-06-04] MEDS ORDERED: TRAMADOL HCL50 MG ORAL (05:08)
[2019-06-04] MEDS ORDERED: Capsaicin 0.075% Cream TOPIC STA (05:16)
[2019-06-04 05:30] VITALS: BP 129/74
--- NOTE | 2019-06-04 05:40 | NUR ---
ER DISCHARGE NOTE: Patient is cleared to be discharged per ERMD, pt is aox4, on room air, with stable vital signs. pt was given dc and prescription instructions, pt was able to verbalize understanding, pt id band and iv site removed without complications. pt is able to ambulate with steady gait. pt took all belongings.
[2019-06-04] MEDS ORDERED: oxyCODONE HCL/Acetaminophen 5/325mg ORAL ONE (05:45)
[2019-06-04 06:05] VITALS: BP 129/74
--- NOTE | 2019-06-04 12:37 | Cardiology Report ---
APPROVED REPORT EKG Measurement Heart [id number] DC [id number] Normal sinus rhythm Normal ECG
== END 2019-06-04 05:55 | disposition home or self-care (01) ==
LOC: EDUNIT# 23:57 → EMR 06-04 00:45
DX: K29.80 Duodenitis without bleeding (principal); B02.9 Zoster without complications; R60.0 Localized edema; R10.84 Generalized abdominal pain; I50.9 Heart failure, unspecified; I11.0 Hypertensive heart disease with heart failure; J44.9 Chronic obstructive pulmonary disease, unspecified
CPT/HCPCS: 36415; 71045; 74177; 80053; 80307; 81003; 82550; 83690; 84484; 85025; 85610; 85730; 93005; 96374; 96375; 99284; J1200; J2270; J2765; Q9967; S0028

== ENCOUNTER 2019-06-17 01:16 | Emergency (ER) | payer MEDICAID ==
[~2019-06-17] VITALS: Ht 167.6 cm; Wt 95.3 kg
[~2019-06-17 01:16] MED LIST changes: +FUROSEMIDE20 M1 ORAL; +PROTONIX40 MG ORAL; +TRAMADOL HCL50 MG ORAL; +ZOSTRIX HP56.6 G2 TP
--- NOTE | 2019-06-17 01:35 | NUR ---
ED Nurse Note: POt ambulated to ED from home c/o L ankle pain 10/ since 2 days ago after hitting it on furniture. VSS pt ios A&Ox4
--- NOTE | 2019-06-17 02:08 | Emergency Room Report ---
History of Present Illness General Chief Complaint: Lower Extremity Injury Source: Patient Present Illness HPI Patient is a 58-year-old male who presents after increased left-sided foot pain. He reports having struck his foot on a piece of furniture. He reports having increased swelling. Patient has prior history of heart failure and had previous been taking diuretics. He denies any current shortness of breath. He reports having been compliant with his medications. He states that he has been able to sleep flat. He denies any current palpitations. Allergies: Coded Allergies: LATEX (Verified Allergy, Unknown, 05/28/19) Patient History Past Medical History: see triage record Reviewed Nursing Documentation: PMH: Agreed; PSxH: Agreed Nursing Documentation-PMH Hx Cardiac Problems: Yes Hx Hypertension: Yes Hx Asthma: Yes Hx COPD: Yes Hx Diabetes: Yes Hx Neurological Problems: No Physical Exam Vital Signs Date Time Temp Pulse Resp B/P (MAP) Pulse Ox O2 Delivery O2 Flow Rate FiO2 06/17/19 01:35 98.4 88 16 134/85 (101) 92 Room Air General Appearance: alert, obese, Chronically Ill Eyes: bilateral eye PERRL ENT: hearing grossly normal, normal voice Neck: full range of motion Respiratory: chest non-tender, lungs clear Cardiovascular #1: normal peripheral pulses, regular rate, rhythm, edema Gastrointestinal: normal inspection, soft Musculoskeletal: swelling Neurologic: normal inspection, alert, oriented x3, responsive Medical Decision Making Diagnostic Impression: Primary Impression: CHF (congestive heart failure) Additional Impression: Contusion, foot ER Course Patient presented for foot pain. Differential diagnosis include is not limited to contusion, fracture, foreign body, vascular insufficiency among others. Patient was noted to have some prior history of congestive heart failure. He was noted to have some slight edema to both lower extremities. Patient was given IV Lasix. He was also given medications for pain. X-ray imaging of the foot 3 views interpreted by radiology showed normal bony alignment without fracture. Patient does not show any evidence of vascular compromise. He is advised to continue to keep his foot elevated as well as to take Tylenol as needed for pain. He is advised to continue his diuretics. Patient was advised to return if he began having chest discomfort or shortness of breath or other concerns. Last Vital Signs Date Time Temp Pulse Resp B/P (MAP) Pulse Ox O2 Delivery O2 Flow Rate FiO2 06/17/19 01:35 98.4 88 16 134/85 (694) 57 Room Air Status: improved Disposition: HOME, SELF-CARE Condition: Stable Scripts Acetaminophen (Acetaminophen) 650 Mg Supp.rect 650 MG DC Q4HR, #30 SUPP 0 Refills Prov: Shorty Diallo MD 06/17/19 Shorty Diallo MD Jun 17, 2019 02:08
[2019-06-17] MEDS ORDERED: Acetaminophen 500mg (ES) tab ORAL ONE (03:00)
--- NOTE | 2019-06-17 03:24 | Diagnostic Imaging Report ---
EXAM: XR Chest, 1 View CLINICAL HISTORY: SOB TECHNIQUE: Frontal view of the chest. COMPARISON: 06/04/19 IMPRESSION: Cardiomegaly. Improved aeration of the bilateral lower lobes. However there is still mild persistent airspace opacity. Possibly edema or infectious process. No pleural effusion.
[2019-06-17] MEDS ORDERED: TYLENOL650 MG PR (03:29)
[2019-06-17 03:40] VITALS: BP 134/85
--- NOTE | 2019-06-17 03:40 | NUR ---
ER DISCHARGE NOTE: Patient is cleared to be discharged per ERMD, pt is aox4, on room air, with stable vital signs. pt was given dc and prescription instructions, pt was able to verbalize understanding, pt id band removed. pt is able to ambulate with steady gait. pt took all belongings.
--- NOTE | 2019-06-17 03:52 | Diagnostic Imaging Report ---
EXAM: XR Left Foot Complete, 3 or More Views CLINICAL HISTORY: SOB TECHNIQUE: Frontal, lateral and oblique views of the left foot. COMPARISON: No relevant prior studies available. FINDINGS: Bones/joints: No acute fracture. No dislocation. Soft tissues: Unremarkable. No radiopaque foreign body. IMPRESSION: No acute osseous findings.
== END 2019-06-17 03:40 | disposition home or self-care (01) ==
LOC: EMR 01:40
DX: M79.672 Pain in left foot (principal); R06.02 Shortness of breath; J44.9 Chronic obstructive pulmonary disease, unspecified; E11.9 Type 2 diabetes mellitus without complications; Z91.040 Latex allergy status; I11.0 Hypertensive heart disease with heart failure; I50.9 Heart failure, unspecified
CPT/HCPCS: 71045; 73630; Z7502; 99284